=== PATIENT | female | born 1950 | race African-American/Black ===

== ENCOUNTER → 2017-10-21 | Outpatient (CLI) | payer OTHER, MEDICARE ==
[~2017-10-21] MED LIST: ASPIR 8181 MG PO; BENTYL10 MG PO; BENZTROPINE MESY2 MG PO; CALAN SR240 MG PO; CARBAMAZEPINE200 MG PO; DIATRIZOATE MEGL/DIATRIZOA SOD 30 ML BTL PO ONE; HYDROCHLOROTHIA25 MG PO; IOPAMIDOL 370 MG/ML 200 ML INFUS..BTL INJ ONE; SODIUM CHLORIDE 0.9% 50ML 50 ML ONE; ZOCOR20 MG PO
[2017-10-21 11:32] LABS: BASOPHILS # (AUTO) 0.1 (0.0-0.1); BASOPHILS % 0.7 % (0.0-1.0); EOSINOPHILS % 0.5 % (0.0-6.0); HEMATOCRIT 37.5 % (34.2-44.1); HEMOGLOBIN 11.7 g/dL (12.0-16.0); LYMPHOCYTES # (AUTO) 1.8 (1.0-3.2); LYMPHOCYTES % 24.1 % (18.0-39.1); MEAN CORPUSCULAR HEMOGLOBIN 26.4 pg (28-32); MEAN CORPUSCULAR HGB CONC 31.2 g/dL (31-35); MEAN CORPUSCULAR VOLUME 84.7 fL (81-99); MONOCYTES # (AUTO) 0.5 (0.2-0.8); MONOCYTES % 6.9 % (4.4-11.3); NEUTROPHILS # (AUTO) 4.9 (2.1-6.9); NEUTROPHILS % 67.7 % (38.7-80.0); PLATELET COUNT 385 x10e3/uL (140-360); RED BLOOD COUNT 4.43 x10e6/uL (3.6-5.1); RED CELL DISTRIBUTION WIDTH 16.8 % (11.7-14.4)
[2017-10-21 11:57] LABS: ALANINE AMINOTRANSFERASE 10 IU/L (0-55); ALBUMIN 3.1 g/dL (3.5-5.0); ALBUMIN/GLOBULIN RATIO 0.8 (0.8-2.0); ALKALINE PHOSPHATASE 60 IU/L (40-150); ANION GAP 12.7 mmol/L (8-16); BLOOD UREA NITROGEN 11 mg/dL (7-26); BUN/CREATININE RATIO 11 (6-25); CALCIUM 9.6 mg/dL (8.4-10.2); CARBON DIOXIDE 31 mmol/L (22-29); CHLORIDE 97 mmol/L (98-107); CREATININE, SERUM 0.98 mg/dL (0.57-1.11); EST GLOMERULAR FILTRATION RATE > 60 ML/MIN (60-); GLUCOSE 105 mg/dL (74-118); POTASSIUM 3.7 mmol/L (3.5-5.1); SODIUM 137 mmol/L (136-145)
--- NOTE | 2017-10-21 15:24 | Diagnostic Imaging Report ---
PROCEDURE: CT ABDOMEN AND PELVIS WITH CONTRAST TECHNIQUE: The abdomen and pelvis were scanned utilizing a multidetector helical scanner from the diaphragm to the lesser trochanter after the IV administration of 100 cc of Isovue 370 and the oral administration of dilute Gastrografin. Coronal and sagittal multiplanar reformations were obtained. COMPARISON: None. INDICATIONS: ABDOMINAL MASS, abdominal pain for 2 years FINDINGS: Exam limited by breathing motion artifact. LOWER THORAX: Visualized lung bases are clear. Moderate hiatal hernia, containing oral contrast HEPATOBILIARY: No focal hepatic lesions. No biliary ductal dilatation. Gallbladder is unremarkable. SPLEEN: No splenomegaly. PANCREAS: No focal masses or ductal dilatation. ADRENALS: No adrenal nodules. KIDNEYS/URETERS: Moderate bilateral pelvocaliectasis. No stones. No cystic or solid lesions. PELVIC ORGANS/BLADDER: Bladder is decompressed and grossly unremarkable. There is an approximately 25.0 x 21.3 x 16.9 cm complex, mostly cystic mass which occupies the pelvis and extends superiorly into the abdomen to the level of the SMA (series 2 image 56, sagittal image 64). This mass contains a crescentic shaped cyst heterogeneously solid nodular component with multiple rounded areas of enhancement and areas of dystrophic calcification in its left lower lateral aspect (series 2 image 58). Other heterogeneous, likely enhancing mural nodules are noted along the anterosuperior aspect (sagittal image 56 and series 2, image 40) as well as the right inferolateral aspect (series 2, images 67-71). A cystic 3.3 x 2.6 x 5.7 cm loculus on its right lateral aspect (series 2, image 48). It is difficult to determine whether this mass arises from or displaces the uterus, or from the right ovary. A normal right ovary is not identified. There is a left posterior pelvis soft tissue density with peripherally calcified structure, which may represent the left ovary (series 2, image 67). PERITONEUM / RETROPERITONEUM: No free air or fluid. LYMPH NODES: No lymphadenopathy. VESSELS: Celiac trunk, superior and inferior mesenteric, and bilateral renal arteries are patent. Portal, superior mesenteric, and splenic veins are patent. GI TRACT: No bowel dilation or evidence of obstruction. BONES AND SOFT TISSUES: No acute bony abnormalities. No aggressive lytic lesions. Degenerative changes in the lower thoracic and lumbosacral spine. Moderate to marked facet hypertrophy. L4-5. IMPRESSION: 1. Large complex, mostly cystic mass with crescentic and solid mural solid component occupying the pelvis and large portion of the abdomen, measuring approximately 25 cm in greatest diameter. It is difficult to determine whether this lesion arises from the uterus or right ovary. Normal right ovary is not identified. 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 No definite adenopathy, ascites, or peritoneal implants are identified in this exam. Recommend contrast-enhanced abdomen and pelvis MRI for further evaluation. Correlate with CA-125. 2. Moderate bilateral pelvocaliectasis, likely secondary to ureteral compression from the above-described mass. 3. Moderate hiatal hernia. Paddy Trejo M.D. Dictated by: Paddy Trejo M.D. on 10/21/2017 at 15:26 Electronically approved by: Paddy Trejo M.D. on 10/21/2017 at 15:26
== END ==
LOC: CT 10:25
PROVIDERS: ATTEND Surgery
DX: R19.09 Other intra-abdominal and pelvic swelling, mass and lump (principal)
CPT/HCPCS: 36415; 74177; 80053; 82378; 85025; 86304; Q9967

== ENCOUNTER 2017-11-16 05:25 | Inpatient (IN) | payer OTHER, MEDICARE ==
--- NOTE | 2017-11-11 10:00 | Diagnostic Imaging Report ---
PROCEDURE: X-RAY CHEST, TWO VIEWS COMPARISON: None. INDICATIONS: PREOPERATIVE CHEST XRAY FOR ABDOMEN SURGERY FINDINGS: Lungs are well-inflated. No focal airspace consolidation, pleural effusion, or pneumothorax. Calcified granuloma in the right upper lobe. Tortuosity and atherosclerotic calcification of the thoracic aorta. Normal heart size. Small hiatal hernia. No acute osseous abnormality. CONCLUSION: No acute cardiopulmonary abnormality. Dictated by: David Chandler M.D. on 11/11/2017 at 10:03 Electronically approved by: David Chandler M.D. on 11/11/2017 at 10:03
[2017-11-14 09:24] LABS: BASOPHILS # (AUTO) 0.1 (0.0-0.1); BASOPHILS % 0.8 % (0.0-1.0); EOSINOPHILS % 0.5 % (0.0-6.0); HEMATOCRIT 37.8 % (34.2-44.1); HEMOGLOBIN 11.9 g/dL (12.0-16.0); LYMPHOCYTES # (AUTO) 1.7 (1.0-3.2); LYMPHOCYTES % 23.6 % (18.0-39.1); MEAN CORPUSCULAR HEMOGLOBIN 26.6 pg (28-32); MEAN CORPUSCULAR HGB CONC 31.5 g/dL (31-35); MEAN CORPUSCULAR VOLUME 84.4 fL (81-99); MONOCYTES # (AUTO) 0.5 (0.2-0.8); MONOCYTES % 6.1 % (4.4-11.3); NEUTROPHILS % 68.7 % (38.7-80.0); PLATELET COUNT 368 x10e3/uL (140-360); RED BLOOD COUNT 4.48 x10e6/uL (3.6-5.1); RED CELL DISTRIBUTION WIDTH 16.2 % (11.7-14.4)
[2017-11-14 09:38] LABS: ANION GAP 13.1 mmol/L (8-16); BLOOD UREA NITROGEN 9 mg/dL (7-26); BUN/CREATININE RATIO 9 (6-25); CALCIUM 9.6 mg/dL (8.4-10.2); CARBON DIOXIDE 30 mmol/L (22-29); CHLORIDE 101 mmol/L (98-107); CREATININE, SERUM 1.01 mg/dL (0.57-1.11); EST GLOMERULAR FILTRATION RATE > 60 ML/MIN (60-); GLUCOSE 116 mg/dL (74-118); POTASSIUM 3.1 mmol/L (3.5-5.1); SODIUM 141 mmol/L (136-145)
[2017-11-16] VITALS (27 sets, daily range): BP systolic 112–153; BP diastolic 53–78
[~2017-11-16] VITALS: Ht 157.5 cm; Wt 76.9 kg
[~2017-11-16 05:25] MED LIST changes: -DIATRIZOATE MEGL/DIATRIZOA SOD 30 ML BTL PO ONE; +FERROUS SULFAT325 MG PO; +FOLIC ACID1 MG PO; -IOPAMIDOL 370 MG/ML 200 ML INFUS..BTL INJ ONE; +LOSARTAN-HCTZ1 EAC1 PO; +PRAVASTATIN SOD40 MG PO; -SODIUM CHLORIDE 0.9% 50ML 50 ML ONE; +TRIFLUOPERAZINE1 MG PO; +XARELTO10 MG PO
--- OUTSIDE RECORDS SUMMARY | 2017-11-16 05:27 | XMS REPORT | Clinical Summary ---
Author Author [facility] Organization [facility] Address Unknown Phone Unavailable Care Team Providers Care Cryptologic Technician Technical Name Role Phone Antwan Anders MD PCP Allergies No Known Allergies Current Medications Prescription Sig. Disp. Refills Start End Date Status Date aspirin (ECOTRIN) 81 MG Take 81 mg by mouth every Active enteric coated tablet morning. hydroCHLOROthiazide Take 12.5 mg by mouth Active (MICROZIDE) 12.5 mg every morning. capsule trifluoperazine Take 5 mg by mouth 2 Active (STELAZINE) 5 MG tablet (two) times a day. verapamil sustained Take 240 mg by mouth Active release (CALAN-SR) 240 MG nightly. SR tablet traMADol (ULTRAM) 50 mg Take 50 mg by mouth every Active tablet 8 (eight) hours as needed for moderate pain. pravastatin (PRAVACHOL) Take 40 mg by mouth Active 40 MG tablet nightly. losartan (COZAAR) 100 MG Take 100 mg by mouth Active tablet every morning. rivaroxaban (XARELTO) 15 Take 15 mg by mouth 2 Active mg tablet (two) times a day. potassium chloride Take 1 capsule (10 mEq 1 capsule 0 05/14/20 Active (MICRO-K) 10 MEQ CR total) by mouth daily. 17 capsule sennosides-docusate Take 1 tablet by mouth 2 60 tablet 1 05/14/20 sodium (SENOKOT-S) 8.6-50 (two) times a day as 17 18 mg per tablet needed for constipation for up to 30 days. Active Problems Problem Noted Date Hypokalemia 05/13/2017 Encounters Date Type Specialty Care Team Description 05/13/2017 Emergency General Internal Medicine Es Pereyra MD Hypokalemia (Primary Dx); - Jacoby Crowder Near syncope; 05/14/2017 DO Osito Rosenthal, Bereket Salinas MD after 11/15/2016 Social History Tobacco Use Types Packs/Day Years Used Date Never Smoker Smokeless Tobacco: Never Used Alcohol Use Drinks/Week oz/Week Comments No Sex Assigned at Date Recorded Not on file Last Filed Vital Signs Vital Sign Reading Time Taken Blood Pressure 144/65 05/14/2017 2:58 PM [employer] Pulse 109 05/14/2017 2:58 PM [employer] Temperature 37.3 C (99.1 F) 05/14/2017 2:58 PM [employer] Respiratory Rate 18 05/14/2017 2:58 PM [employer] Oxygen Saturation 98% 05/14/2017 2:58 PM [employer] Inhaled Oxygen - - Concentration Weight 83 kg (182 lb 14.4 oz) 05/13/2017 7:32 PM [employer] Height 157.5 cm (5' 2") 05/13/2017 7:32 PM [employer] Body Mass Index 33.45 05/13/2017 7:32 PM [employer] Plan of Treatment Health Maintenance Due Date Last Done Comments BREAST CANCER SCREENING 1999 COLON CANCER SCREENING 1999 SHINGRIX VACCINE (#1) 1999 ZOSTER VACCINE 2009 PNEUMOCOCCAL 2014 POLYSACCHARIDE VACCINE AGE 65 AND OVER PNEUMOCOCCAL-13 2014 INFLUENZA VACCINE 01/11/2018 Procedures Procedure Name Priority Date/Time Associated Diagnosis Comments IA CRITICAL CARE, ADDL 30 Routine 05/13/2017 Results for this MIN 2:33 AM [employer] procedure are in the results section. after 11/15/2016 Results * Estimated GFR (05/13/2017 1:27 PM) Only the most recent of 2 results within the time period is included. Component Value Ref Range GFR Non Af Amer 62 mL/min/1.73 m2 GFR Af Amer 75 mL/min/1.73 m2 Comment: Chronic kidney disease: <60 mL/min/1.73m2 Kidney failure: <15 mL/min/1.73m2 The estimated GFR is calculated from the IDMS-traceable Modification of Diet in Renal Disease Equation. The accuracy of the calculation is poor when the creatinine is normal. Calculated values >90 mL/min/1.73m2 are not reported. This equation has not been validated in children (<18 years), women, the elderly (>70 years), or ethnic groups other than Caucasians and Americans. Specimen Performing Laboratory Plasma specimen [facility]OMIC MEDICINE [address] [place] [address] * CBC with platelet and differential (05/13/2017 1:27 PM) Only the most recent of 2 results within the time period is included. Component Value Ref Range WBC 12.9 (H) 4.2 - 11.0 k/uL RBC 3.28 (L) 4.04 - 5.86 m/uL HGB 9.1 (L) 11.5 - 15.3 g/dL HCT 27.7 (L) 34.0 - 45.0 % MCV 84.5 80.0 - 98.0 fL MCH 27.7 27.0 - 34.0 pg MCHC 32.9 31.5 - 36.5 g/dL RDW - SD 43.5 37.0 - 51.0 fL MPV 10.3 7.4 - 10.4 fL Platelet count 416 (H) 150 - 400 k/uL Nucleated RBC 0.20 /100 WBC Neutrophils 83.5 (H) 36.0 - 66.0 % Lymphocytes 10.1 (L) 24.0 - 44.0 % Monocytes 5.7 0.0 - 6.0 % Eosinophils 0.0 0.0 - 6.0 % Basophils 0.2 0.0 - 1.2 % Immature granulocytes 0.5 0.0 - 1.0 % Specimen Performing Laboratory Blood [facility] GENOMIC MEDICINE [address] [place] [address] * Basic metabolic panel (05/13/2017 1:27 PM) Component Value Ref Range Sodium 135 135 - 150 mEq/L Potassium 3.2 (L) 3.5 - 5.0 mEq/L Chloride 98 (L) 100 - 109 mEq/L CO2 29 24 - 32 mmol/L Anion gap 8 7 - 15 mEq/L Comment: Starting from September , anion gap calculation no longer incorporates potassium. Please note the change. BUN 24 (H) 7 - 18 mg/dL Creatinine 0.9 0.8 - 1.5 mg/dL Glucose 179 (H) 65 - 100 mg/dL Calcium 7.8 (L) 8.6 - 10.7 mg/dL Specimen Performing Laboratory Plasma specimen [facility] GENOMIC MEDICINE [address] [place] [address] * Urinalysis screen and microscopy, with reflex to culture (05/13/2017 4:24 AM) Component Value Ref Range Specimen site Clean catch Color, UA Yellow Appearance, UA Clear Specific gravity, UA 1.056 (H) 1.001 - 1.035 pH, UA 5.0 5.0 - 8.5 Protein, UA Negative Negative Glucose, UA Negative Negative Ketones, UA Trace (A) Negative Bilirubin, UA Negative Negative Blood, UA Trace (A) Negative Nitrite, UA Negative Negative Urobilinogen, UA Negative <2.0 Leukocyte esterase, UA Large (A) Negative Epithelial cells, UA Many /HPF WBC, UA 50 (H) 0 - 5 /HPF RBC, UA 13 (H) 0 - 5 /HPF Bacteria, UA Trace None seen Yeast, UA None seen Yeast with pseudohyphae, None seen UA Specimen Performing Laboratory Urine [facility]OM[facility]IC[facility] [address] [place] [address] * Gram stain (05/13/2017 4:24 AM) Component Value Ref Range Gram stain result Rare WBC's Occasional Gram positive cocci in pairs Comment: Specimen Information Specimen Source: Urine Specimen Site: Clean catch Specimen Performing Laboratory Urine [facility] DEPARTMENT OF PATHOLOGY AND GENOMIC MEDICINE [address] [place] [address] * Urine culture (05/13/2017 4:24 AM) Component Value Ref Range Urine culture isolate Gram negative rods 10-2 cfu/ml (A) Comment: Specimen Information Specimen Source: Urine Specimen Site: Clean catch Urine culture isolate Mixed Gram positive francis 10-1 cfu/ml (A) Urine culture isolate Streptococcus anginosus group 10-5 cfu/ml (A) Specimen Performing Laboratory Urine [facility] DEPARTMENT OF PATHOLOGY AND GENOMIC MEDICINE [address] [place] [address] * CT Angiogram Pe Chest (05/13/2017 2:58 AM) Specimen [place] [address] ANGIOGRAM PE CHEST INDICATION:sob TECHNIQUE: Multidetector CT of the chest with attention to the pulmonary arteries was performed following the intravenous administration of iodinated contrast. Standard multiplanar reformatted images were performed.In addition , postprocessed 3D MIP images were also performed for CT angiography. CT imaging was performed with iterative reconstruction technique and/or automated exposure control to reduce radiation dose. COMPARISON:None FINDINGS: PULMONARY ARTERIES:The pulmonary arteries are diagnostically opacified without findings for acute pulmonary embolus. HEART AND GREAT ARTERIES:The heart is normal in size without pericardial effusion. The aorta and great vessels are unremarkable for phase of scanning. MEDIASTINUM AND KYUNG: No mass or hematoma is identified.No enlarged lymph nodes are seen.Trachea and central airways are patent. LUNGS:Clear. PLEURA: No pneumothorax or effusion. CHEST WALL:There are no acute osseous abnormalities. There is mild skin thickening of the right breast. VISUALIZED ABDOMEN: There is upper abdominal ascites. There is a moderate-sized hiatal hernia. IMPRESSION: 1. No pulmonary embolism or acute pulmonary infiltrate. 2. Moderate-sized hiatal hernia. 3. Mild skin thickening of the right breast, clinical correlation is recommended. 4. Upper abdominal ascites. [facility]-[id number] Procedure Note [facility], Radiology Results Incoming - 05/13/2017 3:08 AM [employer] CT ANGIOGRAM PE CHEST INDICATION: sob TECHNIQUE: Multidetector CT of the chest with attention to the pulmonary arteries was performed following the intravenous administration of iodinated contrast. Standard multiplanar reformatted images were performed. In addition, postprocessed 3D MIP images were also performed for CT angiography. CT imaging was performed with iterative reconstruction technique and/or automated exposure control to reduce radiation dose. COMPARISON: None FINDINGS: PULMONARY ARTERIES: The pulmonary arteries are diagnostically opacified without findings for acute pulmonary embolus. HEART AND GREAT ARTERIES: The heart is normal in size without pericardial effusion. The aorta and great vessels are unremarkable for phase of scanning. MEDIASTINUM AND KYUNG: No mass or hematoma is identified. No enlarged lymph nodes are seen. Trachea and central airways are patent. LUNGS: Clear. PLEURA: No pneumothorax or effusion. CHEST WALL: There are no acute osseous abnormalities. There is mild skin thickening of the right breast. VISUALIZED ABDOMEN: There is upper abdominal ascites. There is a moderate-sized hiatal hernia. IMPRESSION: 1. No pulmonary embolism or acute pulmonary infiltrate. 2. Moderate-sized hiatal hernia. 3. Mild skin thickening of the right breast, clinical correlation is recommended. 4. Upper abdominal ascites. [facility]-[id number] * CRITICAL CARE (05/13/2017 2:33 AM) Narrative Es Pereyra MD 05/13/20172:33 AM Critical Care Performed by: ES PEREYRA Authorized by: ES PEREYRA Critical care provider statement: Critical care time (minutes):32 Critical care was necessary to treat or prevent imminent or life-threatening deterioration of the following conditions:Cardiac failure, circulatory failure and MAKE [employer] OPERATOR failure or compromise Critical care was time spent personally by me on the following activities:Blood draw for specimens, development of treatment plan with patient or surrogate and discussions with consultants Jesus 'yes' if you are taking over critical care for this patient from another provider.: yes * Troponin (05/13/2017 1:02 AM) Component Value Ref Range Troponin <0.01 0.00 - 0.60 ng/mL Comment: 0.11 - 1.49 ng/ml May indicate increased risk of acute coronary syndrome. >=1.5 ng/ml Consistent with acute myocardial infarction. The diagnostic value of a single normal or non-diagnostic result is questionable. Serial samples at 2-6 hour intervals are required to rule out acute myocardial injury. Specimen Performing Laboratory Plasma specimen [facility] OF [facility]OLOG[facility] AND GENOMIC MEDICINE [address] [place] [address] * Prothrombin time with INR (05/13/2017 1:02 AM) Component Value Ref Range Prothrombin time 29.8 (H) 12.0 - 15.0 sec INR 2.76 (H) 0.92 - 1.12 Comment: For patients on anticoagulant therapy, reference ranges below: Indication: INR Value Treatment of Venous Thrombosis, 2.0-3.0 pulmonary emboli, or prophylaxis of a venous thrombosis, or systemic emboli. High dose, high risk patients 3.0-4.5 with mechanical valves. NOTE: INR values over 3.0 are sometimes associated with gastrointestinal hemorrhage, especially values over 4.0. Specimen Performing Laboratory Blood [facility]OLOGY AND GENOMIC MEDICINE [address] [place] [address] * B natriuretic peptide (05/13/2017 1:02 AM) Component Value Ref Range BNP 13 0 - 100 pg/mL Specimen Performing Laboratory Blood [facility]OLOGY AND GENOMIC MEDICINE [address] [place] [address] * Comprehensive metabolic panel (05/13/2017 1:02 AM) Component Value Ref Range Sodium 133 (L) 135 - 150 mEq/L Potassium 2.6 (LL) 3.5 - 5.0 mEq/L Comment: Results called to and read back by alberto Au RN/ER at 05/13/2017 02:24 by RICK Chloride 93 (L) 100 - 109 mEq/L CO2 28 24 - 32 mmol/L Anion gap 12 7 - 15 mEq/L Comment: Starting from September , anion gap calculation no longer incorporates potassium. Please note the change. BUN 27 (H) 7 - 18 mg/dL Creatinine 1.0 0.8 - 1.5 mg/dL Glucose 165 (H) 65 - 100 mg/dL Calcium 8.4 (L) 8.6 - 10.7 mg/dL Protein 6.9 6.3 - 8.2 g/dL Albumin 2.9 (L) 3.2 - 5.0 g/dL A/G ratio 0.7 0.7 - 3.8 Alkaline phosphatase 57 30 - 120 U/L AST 25 15 - 37 U/L ALT 14 (L) 30 - 65 U/L Total bilirubin 0.4 0.2 - 1.2 mg/dL Specimen Performing Laboratory Plasma specimen [facility]OLOG[facility] AND GENOMIC MEDIC[facility] [address] [facility] [place] [address] * XR Chest 1 Vw Portable (05/13/2017 12:50 AM) Specimen Performing Laboratory [facility] [address] [place] [address] Narrative EXAMINATION:XR CHEST 1 VW PORTABLE CLINICAL HISTORY: Chest Pain COMPARISON:None IMPRESSION: Low lung volumes results in bronchovascular crowding and bibasilar atelectasis. Taking this into consideration, cardiomediastinal silhouette is within normal limits of size. No superimposed focal or confluent airspace consolidation is seen on the single AP view to suggest acute pneumonia. No sizable pleural effusion. No pneumothorax identified. No acute osseous abnormalities are visualized. [facility]-[id number] Procedure Note Interface, Radiology Results Incoming - 05/13/2017 1:03 AM [employer] EXAMINATION: XR CHEST 1 VW PORTABLE CLINICAL HISTORY: Chest Pain COMPARISON: None IMPRESSION: Low lung volumes results in bronchovascular crowding and bibasilar atelectasis. Taking this into consideration, cardiomediastinal silhouette is within normal limits of size. No superimposed focal or confluent airspace consolidation is seen on the single AP view to suggest acute pneumonia. No sizable pleural effusion. No pneumothorax identified. No acute osseous abnormalities are visualized. 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 Previous ECG: Previous ECG:Compared to current Interpretation: Interpretation: normal Rate: ECG rate:104 ECG rate assessment: normal Rhythm: Rhythm: sinus rhythm Ectopy: Ectopy: none QRS: QRS axis:Normal Conduction: Conduction: normal ST segments: ST segments:Normal T waves: T waves: normal * ECG 12 lead (05/13/2017 12:35 AM) Component Value Ref Range Ventricular rate 104 Atrial rate 104 IA interval 124 QRSD interval 64 QT interval 358 QTC interval 470 P axis 1 45 QRS axis 1 66 T wave axis 2 EKG impression Sinus tachycardia-Cannot rule out Anterior infarct , age undetermined-Abnormal ECG-No previous ECGs available- Specimen Performing Laboratory [facility] [address] [place] [address] after 11/15/2016 Insurance Payer Benefit Subscriber ID Type Phone Address Plan / Group [employer] TEX[employer] xxxxxxxxx O [facility] [place] [address]
--- OUTSIDE RECORDS SUMMARY | 2017-11-16 05:27 | XMS REPORT ---
Author Author [facility] Address Unknown Phone Unavailable Care Team Providers Care Manager Code Name Role Phone ERORL CARVAJAL Unavailable Unavailable Problems This patient has no known problems. Allergies, Adverse Reactions, Alerts This patient has no known allergies or adverse reactions. Medications This patient has no known medications. Results Test Description Test Time Test Comments Text Results Atomic Results Result Comments CHEST 2 VIEWS [place] [address] Patient Name: TASHA NOLEN MR #: [id number] : 1950 Age/Sex: 67/F Req # : [id number] Adm Physician: Ordered by: ERROL CARVAJAL MD Report #: [id number] Location: OR Room/Bed: Procedure: 36 DX/CHEST 2 VIEWS Exam Date: Exam Time: REPORT STATUS: Signed PROCEDURE: X-RAY CHEST, TWO VIEWS COMPARISON: None. INDICATIONS: PREOPERATIVE CHEST XRAY FOR ABDOMEN SURGERY FINDINGS: Lungs are well-inflated. No focal airspace consolidation, pleural effusion, or pneumothorax. Calcified granuloma in the right upper lobe. Tortuosity and atherosclerotic calcification of the thoracic aorta. Normal heart size. Small hiatal hernia. No acute osseous abnormality. CONCLUSION: No acute cardiopulmonary abnormality. Dictated by: Christine Vazquez M.D. on 11/11/2017 at 10:03 Electronically approved by: Christine Vazquez M.D. on 11/11/2017 at 10:03 Dictated By: CHRISTINE VAZQUEZ MD [id number] Transcribed By: MILENA on 11/11/17 1003 COPY TO: ERROL CARVAJAL MD CT ABDOMEN/PELVIS W [facility] [address] [place] [address] Patient Name: TASHA NOLEN MR #: [id number] : 1950 Age/Sex: 67/F Req #: [id number] Adm Physician: Ordered by: ERRLO CARVAJAL MD Report #: [id number] Location: CT Room/Bed: Procedure: [id number] CT/CT ABDOMEN/PELVIS W Exam Date: 10/21/17 Exam Time: 1227 REPORT STATUS: Signed PROCEDURE: CT ABDOMEN AND PELVIS WITH CONTRAST TECHNIQUE: The abdomen and pelvis were scanned utilizing a multidetector helical scanner from the diaphragm to the lesser trochanter after the IV administration of 100 cc of Isovue 370 and the oral administration of dilute Gastrografin. Coronal and sagittal multiplanar reformations were obtained. COMPARISON: None. INDICATIONS: ABDOMINAL MASS, abdominal pain for 2 years FINDINGS: Exam limited by breathing motion artifact. LOWER THORAX: Visualized lung bases are clear. Moderate hiatal hernia, containing oral contrast HEPATOBILIARY: No focal hepatic lesions. No biliary ductal dilatation. Gallbladder is unremarkable. SPLEEN: No splenomegaly. PANCREAS: No focal masses or ductal dilatation. ADRENALS: No adrenal nodules. KIDNEYS/URETERS: Moderate bilateral pelvocaliectasis. No stones. No cystic or solid lesions. PELVIC ORGANS/BLADDER: Bladder is decompressed and grossly unremarkable. There is an approximately 25.0 x 21.3 x 16.9 cm complex, mostly cystic mass which occupies the pelvis and extends superiorly into the abdomen to the level of the SMA (series 2 image 56, sagittal image 64). This mass contains a crescentic shaped cyst heterogeneously solid nodular component with multiple rounded areas of enhancement and areas of dystrophic calcification in its left lower lateral aspect (series 2 image 58). Other heterogeneous, likely enhancing mural nodules are noted along the anterosuperior aspect ( sagittal image 56 and series 2, image 40) as well as the right inferolateral aspect (series 2, images 67-71). A cystic 3.3 x 2.6 x 5.7 cm loculus on its right lateral aspect (series 2, image 48). It is difficult to determine whether this mass arises from or displaces the uterus, or from the right ovary. A normal right ovary is not identified. There is a left posterior pelvis soft tissue density with peripherally calcified structure, which may represent the left ovary (series 2, image 67). PERITONEUM / RETROPERITONEUM : No free air or fluid. LYMPH NODES: No lymphadenopathy. VESSELS: Celiac trunk, superior and inferior mesenteric, and bilateral renal arteries are patent. Portal, superior mesenteric, and splenic veins are patent. GI TRACT : No bowel dilation or evidence of obstruction. BONES AND SOFT TISSUES: No acute bony abnormalities. No aggressive lytic lesions. Degenerative changes in the lower thoracic and lumbosacral spine. Moderate to marked facet hypertrophy. L4-5. IMPRESSION: 1. Large complex, mostly cystic mass with crescentic and solid mural solid component occupying the pelvis and large portion of the abdomen, measuring approximately 25 cm in greatest diameter. It is difficult to determine whether this lesion arises from the uterus or right ovary. Normal right ovary is not identified. 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 No definite adenopathy, ascites, or peritoneal implants are identified in this exam. Recommend contrast-enhanced abdomen and pelvis MRI for further evaluation. Correlate with CA-125. 2. Moderate bilateral pelvocaliectasis, likely secondary to ureteral compression from the above- described mass. 3. Moderate hiatal hernia. Yoshi Trejo M.D. Dictated by: Yoshi Trejo M.D. on 10/21/2017 at 15:26 Electronically approved by: Yoshi Trejo M.D. on 10/21/2017 at 15:26 Dictated By: YOSHI TREJO MD 152 Transcribed By: MILENA on 10/21/17 152 COPY TO: ERROL CARVAJAL MD
--- OUTSIDE RECORDS SUMMARY | 2017-11-16 05:28 | XMS REPORT | Summary of Care ---
Author Author LOREN PONCE M.D. Organization Unknown Address Unknown Phone Unavailable Care Team Providers Care [employer] Name Role Phone LOREN PONCE M.D. Unavailable Unavailable Unavailable Unavailable Functional Status Name Dates Details Functional status health issues are not documented Status: Name Dates Details Cognitive status health issues are not documented Status: Problems Name Dates Details Hyperlipidemia (272.4, E78.5) Status: Active Hypertension (401.9, I10) Status: Active Anemia (285.9, D64.9) Status: Active Renal insufficiency (593.9, N28.9) Status: Active Prediabetes (790.29, R73.03) Status: Active Schizophrenia (295.90, F20.9) Status: Active DVT (deep venous thrombosis) (453.40, I82.409) Status: Active Adnexal mass (625.8, N94.9) Status: Active Medications Name Dates Details Trifluoperazine HCl - 5 MG Oral Tablet Active Xarelto 15 MG Oral Tablet * Refills: 0 Active Losartan Potassium-HCTZ 100-25 MG Oral Tablet * Refills: 0 Active Aspirin 81 MG TABS * Refills: 0 Active Pravastatin Sodium 40 MG Oral Tablet * Refills: 0 Active Verapamil HCl ER 240 MG Oral Capsule Extended Release 24 Hour * Refills: 0 Active Multi-Vitamin Oral Tablet * Refills: 0 Active Folic Acid 1 MG Oral Tablet * Refills: 0 Active Ferrous Sulfate 325 (65 Fe) MG Oral Tablet * Refills: 0 Active Allergies and Adverse Reactions Name Dates Details No Known Drug Allergies (Allergy) Status: Active Procedures Procedure Dates Details CT Abdomen/Pelvis w contrast [id number] Date: 04-Oct-2017 Immunization Name Dates Details Immunizations not documented Family History Name Dates Details Family history of hypertension (V17.49, Z82.49) Status: Active Social History Name Dates Details - Status: Name Dates Details Never smoker Vital Signs Date Test Result Details [id number] BP Systolic 159 mm[Hg] Status: BP Diastolic 83 mm[Hg] Status: Height 62 in Status: Weight 171 lb Status: Body Mass Index Calculated 31.28 kg/m2 Status: Body Surface Area Calculated 1.79 m2 Status: Temperature 98 f Status: Heart Rate 111 /min Status: O2 SAT 94 % Status: Results Date Description Value Details Results not documented Plan of Care Name Dates Details Planned Observations Planned Goals not documented Interventions Provided Labs/Procedures/Imaging* CT Abdomen/Pelvis w contrast [id number]; To Be Done: 04 Oct 2017 Instructions* Patient Specific Education Given; Done: 04 Oct 2017 Discussion/Summary* 67 year old black female, , with history of schizophrenia?, HTN, elevated cholesterol, ? renal insufficiency, presented with at least a 2 year history of a 12 cm adnexal mass that has never been addressed or followed. * She presents with a huge 40 cm plus abdominal mass most likely arising from the pelvis. 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 It will need to be surgically removed. May be related to her DVT 05/29. * Her Xarelto and DVT will need to be addressed prior to surgery. * Plan: CT scan of the abdomen and pelvis. * CA 125 and CEA with blood work. * Next visit in 1-2 weeks to discuss. Instructions Name Dates Details Instructions not documented Encounters Appointment; LOREN PONCE M.D. Encounter Diagnosis: Problem not documented On: 04-Oct-2017 10:00
--- OUTSIDE RECORDS SUMMARY | 2017-11-16 05:28 | XMS REPORT ---
Author Organization Unknown Address [address] [place] [id number] Phone [phone] Care Team Providers Care Workflow Developer Name Role Phone Chago, Veronica Unavailable Unavailable Allergies Code Code System Name Reaction Severity Status Onset No Known Allergies Active NKDA Medications Name Status Start Date Stop Date Aspirin Low Dose 81 mg tablet,delayed release Take 1 tablet every day by oral route for 90 days. Active Not available calcitriol 0.25 mcg capsule Completed 05/24/2017 Dulcolax Stool Softener (docusate) 100 mg capsule Take 1 capsule every day by oral route for 90 days. Completed 05/24/2017 ferrous sulfate 325 mg (65 mg iron) tablet Take 1 tablet every day by oral route for 90 days. Active Not available folic acid 1 mg tablet Take 1 tablet every day by oral route for 90 days. Active Not available hydrochlorothiazide 12.5 mg tablet Completed 08/16/2017 hydrochlorothiazide 25 mg tablet Completed 07/14/2016 losartan 100 mg tablet Completed 08/16/2017 losartan 100 mg-hydrochlorothiazide 25 mg tablet Active Not available Myrbetriq 25 mg tablet,extended release Completed 11/23/2016 potassium chloride ER 10 mEq tablet,extended release Completed 08/16/2017 potassium chloride ER 10 mEq tablet,extended release(part/cryst) Take 1 tablet twice a day by oral route for 15 days. Completed 08/16/2017 pravastatin 40 mg tablet Active Not available tramadol 50 mg tablet Completed 08/16/2017 trifluoperazine 5 mg tablet Active Not available verapamil ER (SR) 240 mg tablet,extended release Completed 04/13/2016 verapamil ER 240 mg 24 hr capsule,extended release Active Not available Xarelto 15 mg (42)-20 mg (9) tablets in a dose pack Take all tablets as directed on the pack Completed 08/16/2017 Xarelto 15 mg tablet Active Not available Xarelto 20 mg tablet Take 1 tablet every day by oral route with meals. 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 History Prediabetes Active 04/13/2016 Hypertensive Heart and Renal Disease Active 07/16/2016 Chronic Kidney Disease Stage 3 Active 07/16/2016 Hyperparathyroidism Due to Renal Insufficiency Active 11/23/2016 Mass of Ovary Active 05/24/2017 Procedures Date Name Performed by 06/24/2015 Mammogram, Screening Information not available 09/24/2014 Bone Density Study Information not available 05/11/2017 US, Doppler, Venous [facility] [address] [address] [facility] [address] [place] [address] ( (Work Place) Notes: 10/21/2015: Colonoscopy; Surgery Date: 2012 Lab Results Date Name Specimen Result Interpretation Description Value Range Status Address 08/16/2017 Magnesium, Serum or Plasma Normal Magnesium 1.9 mg/dL 1.5-2.5 mg/dL Final [facility]: [address] [facility] [place] 08/16/2017 CBC W/ Auto Diff Normal White Blood Cell Count 9.4 thousand/uL 3.8-10.8 thousand/uL Final [facility]: [address] Low Red Blood Cell Count 3.67 million/uL 3.80-5.10 million/uL Final [facility]: [address] Lopez [address] Low Hemoglobin 9.7 g/dL 11.7-15.5 g/dL Final [facility]: [address] Low Hematocrit 31.4 % 35.0-45.0 % Final [facility]: [address] Lopez [facility] Mcv 85.6 fL 80.0-100.0 fL Final [facility]: [address] Low Mch 26.4 pg 27.0-33.0 pg Final [facility]: [address] Low Mchc 30.9 g/dL 32.0-36.0 g/dL Final [facility]: [address] [place] Normal Rdw 14.5 % 11.0-15.0 % Final [facility]: [address] [place] High Platelet Count 531 thousand/uL 140-400 thousand/uL Final [facility]: [address] [place] Normal Mpv 10.5 fL 7.5-12.5 fL Final [facility]: [address] [place] Normal Absolute Neutrophils 7379 cells/uL 4554-8065 cells/uL Final [facility]: [address] [place] Normal Absolute Lymphocytes 1391 cells/uL 850-3900 cells/uL Final [facility]: [address] [place] Normal Absolute Monocytes 583 cells/uL 200-950 cells/uL Final [facility]: [address] [place] Low Absolute Eosinophils 9 cells/uL 15-500 cells/uL Final [facility]: [address] [place] Normal Absolute Basophils 38 cells/uL 0-200 cells/uL Final [facility]: [address] [place] Normal Neutrophils 78.5 % Final [facility]: [address] [place] Normal Lymphocytes 14.8 % Final [facility]: [address] [place] Normal Monocytes 6.2 % Final [facility]: [address] [place] Normal Eosinophils 0.1 % Final [facility]: [address] [facility] Basophils 0.4 % Final [facility]: [address] [facility] 08/16/2017 Phosphorus, Serum or Plasma High Phosphate (as Phosphorus ) 4.5 mg/dL 2.1-4.3 mg/dL Final [facility]: [address] [facility] 08/16/2017 Lipid Panel, Serum Normal Cholesterol, Total 147 mg/dL <200 mg/dL Final [facility]: [address] [facility] Low HDL Cholesterol 43 mg/dL >50 mg/dL Final [facility]: [address] [facility] Normal Triglycerides 124 mg/dL <150 mg/dL Final [facility]: [address] Normal LDL-cholesterol 81 mg/dL (calc) Final [facility]: [address] Normal Chol/hdlc Ratio 3.4 (calc) <5.0 (calc) Final [facility]: [address] Normal Non HDL Cholesterol 104 mg/dL (calc) <130 mg/dL (calc) Final [facility]: [address] 08/16/2017 CMP, Serum or Plasma High Glucose 104 mg/dL 65-99 mg/ dL Final [facility]: [address] Normal Urea Nitrogen (BUN) 14 mg/dL 7-25 mg/dL Final [facility]: [address] High Creatinine 1.01 mg/dL 0.50-0.99 mg/dL Final [facility]: [address] Low eGFR Non-afr. Bhutanese 57 mL/min/1.73m2 > or=60 mL/min/ 1.73m2 Final [facility]: [address] Normal eGFR 66 mL/min/1.73m2 > or=60 mL/min/ 1.73m2 Final [facility]: [address] Normal BUN/creatinine Ratio 14 (calc) 6-22 (calc) Final [facility]: [address] Normal Sodium 139 mmol/L 135-146 mmol/L Final [facility]: [address] Normal Potassium 4.2 mmol/L 3.5-5.3 mmol/L Final [facility]: [address] Normal Chloride 98 mmol/L 98-110 mmol/L Final [facility]: [address] High Carbon Dioxide 32 mmol/L 20-31 mmol/L Final [facility]: [address] High Calcium 10.9 mg/dL 8.6-10.4 mg/dL Final [facility]: [address] Normal Protein, Total 6.6 g/dL 6.1-8.1 g/dL Final [facility]: [address] Normal Albumin 3.7 g/dL 3.6-5.1 g/dL Final [facility]: [address] Normal Globulin 2.9 g/dL (calc) 1.9-3.7 g/dL (calc) Final [facility]: [address] Normal Albumin/globulin Ratio 1.3 (calc) 1.0-2.5 (calc) Final [facility]: [facility] Madeleine Fwchristine [address] Normal Bilirubin, Total 0.3 mg/dL 0.2-1.2 mg/dL Final [facility]: [address] Normal Alkaline Phosphatase 48 U/L 33-130 U/L Final [facility]: [facility] [address] Normal Ast 12 U/L 10-35 U/L Final [facility]: [facility] Madeleine [address] Normal Alt 7 U/L 6-29 U/L Final [facility]: [facility] Madeleine christine [address] 08/16/2017 Protein:creatinine Ratio, Urine Normal Creatinine, Random Urine 136 mg/dL 20-320 mg/dL Final [facility]: [facility] Madeleine christine [address] Normal Protein/creatinine Ratio 110 mg/g creat 21-161 mg/g creat Final [facility]: [facility] [address] Normal Protein, Total, Random Ur 15 mg/dL 5-24 mg/dL Final [facility]: [facility] Madeleine christine [address] 08/16/2017 PTH (Parathyroid Hormone), Intact, Serum or Plasma Normal Parathyroid Hormone, Intact 17 pg/mL 14-64 pg/mL Final [facility]: [address] 11/23/2016 CBC W/ Auto Diff Normal White Blood Cell Count 6.6 thousand/uL 3.8-10.8 thousand/uL Final [facility]: [facility] Madeleine [address] Normal Red Blood Cell Count 4.39 million/uL 3.80-5.10 million/ uL Final [facility]: [address] Carrera Normal Hemoglobin 12.1 g/dL 11.7-15.5 g/dL Final [facility]: [address] [place] Normal Hematocrit 38.3 % 35.0-45.0 % Final [facility]: [address] [place] Normal Mcv 87.3 fL 80.0-100.0 fL Final [facility]: [address] [place] Normal Mch 27.6 pg 27.0-33.0 pg Final [facility]: [address] [place] Low Mchc 31.6 g/dL 32.0-36.0 g/dL Final [facility]: [address]er [place] Normal Rdw 15.0 % 11.0-15.0 % Final [facility]: [address] [place] Normal Platelet Count 314 thousand/uL 140-400 thousand/uL Final [facility]: [address] [place] Normal Mpv 9.5 fL 7.5-12.5 fL Final [facility]: [address] Carrera Normal Absolute Neutrophils 3947 cells/uL 4482-3232 cells/uL Final [facility]: [address] [place] Normal Absolute Lymphocytes 1775 cells/uL 850-3900 cells/uL Final [facility]: [address]er [place] Normal Absolute Monocytes 475 cells/uL 200-950 cells/uL Final [facility]: [address] [place] Normal Absolute Eosinophils 370 cells/uL 15-500 cells/uL Final [facility]: [address] [place] Normal Absolute Basophils 33 cells/uL 0-200 cells/uL Final [facility]: [address] [place] Normal Neutrophils 59.8 % Final [facility]: [address] [place] Normal Lymphocytes 26.9 % Final [facility]: [address] [place] Normal Monocytes 7.2 % Final [facility]: [address] [place] Normal Eosinophils 5.6 % Final [facility]: [address] [place] Normal Basophils 0.5 % Final [facility]: [address] [place] 11/23/2016 CMP, Serum or Plasma Normal Glucose 84 mg/dL 65-99 mg/ dL Final [facility]: [address] Lopez [facility] Normal Urea Nitrogen (BUN) 10 mg/dL 7-25 mg/dL Final [facility]: [address] [place] [address] Normal Creatinine 0.86 mg/dL 0.50-0.99 mg/dL Final [facility]: [address] Golds[address] [place] [address] Normal eGFR Non-afr. [place]utanese 70 mL/min/1.73m2 > or=60 mL/min/ 1.73m2 Final [facility]: [address] [facility] Normal eGFR 81 mL/min/1.73m2 > or=60 mL/min/ 1.73m2 Final [facility]: [address] [place] [address] BUN/creatinine Ratio not applicable (calc) 6-22 (calc) Final [facility]: [address] Normal Sodium 139 mmol/L 135-146 mmol/L Final [facility]: [address] Normal Potassium 4.1 mmol/L 3.5-5.3 mmol/L Final [facility]: [address] Normal Chloride 104 mmol/L 98-110 mmol/L Final [facility]: [address] Golds[address] [place] [address] Normal Carbon Dioxide 26 mmol/L 20-31 mmol/L Final [facility]: [address] Golds[address] [place] [address] Normal Calcium 9.4 mg/dL 8.6-10.4 mg/dL Final [facility]: [address] Normal Protein, Total 6.8 g/dL 6.1-8.1 g/dL Final [facility]: [address] [facility] Normal Albumin 3.9 g/dL 3.6-5.1 g/dL Final [facility]: [address] Normal Globulin 2.9 g/dL (calc) 1.9-3.7 g/dL (calc) Final [facility]: [address] Normal Albumin/globulin Ratio 1.3 (calc) 1.0-2.5 (calc) Final [facility]: [address] Normal Bilirubin, Total 0.3 mg/dL 0.2-1.2 mg/dL Final [facility]: [address] Normal Alkaline Phosphatase 72 U/L 33-130 U/L Final [facility]: [address] Normal Ast 12 U/L 10-35 U/L Final [facility]: [address] Normal Alt 10 U/L 6-29 U/L Final [facility]: [address] 11/23/2016 Lipid Panel, Serum Normal Cholesterol, Total 155 mg/dL 125-200 mg/dL Final [facility]: [address] Low HDL Cholesterol 37 mg/dL > or=46 mg/dL Final [facility]: [address] Normal Triglycerides 149 mg/dL <150 mg/dL Final [facility]: [address] Normal LDL-cholesterol 88 mg/dL (calc) <130 mg/dL (calc) Final [facility]: [address] Normal Chol/hdlc Ratio 4.2 (calc) < or=5.0 (calc) Final [facility]: [address] Normal Non HDL Cholesterol 118 mg/dL (calc) Final [facility]: [address] 11/23/2016 PTH (Parathyroid Hormone), Intact, Serum or Plasma High Parathyroid Hormone, Intact 93 pg/mL 14-64 pg/mL Final [facility]: [address] 09/03/2016 Lipid Panel, Serum Normal Cholesterol, Total 159 mg/dL 125-200 mg/dL Final [facility]: [address], [place] Normal HDL Cholesterol 52 mg/dL > or=46 mg/dL Final [facility]: [address], [place] Normal Triglycerides 97 mg/dL <150 mg/dL Final [facility]: [address], [place] Normal LDL-cholesterol 88 mg/dL (calc) <130 mg/dL (calc) Final [facility]: [address] [facility], [place] Normal Chol/hdlc Ratio 3.1 (calc) < or=5.0 (calc) Final [facility]: [address], [place] Normal Non HDL Cholesterol 107 mg/dL (calc) Final [facility]: [address] [facility], [place] 09/03/2016 CMP, Serum or Plasma Normal Glucose 85 mg/dL 65-99 mg/ dL Final [facility]: [address] [facility], [place] Normal Urea Nitrogen (BUN) 10 mg/dL 7-25 mg/dL Final [facility]: [address] [facility], [place] High Creatinine 1.04 mg/dL 0.50-0.99 mg/dL Final [facility]: [address] [facility], [place] Low eGFR Non-afr. Bhutanese 56 mL/min/1.73m2 > or=60 mL/min/ 1.73m2 Final [facility]: [address] [facility], [place] Normal eGFR 64 mL/min/1.73m2 > or=60 mL/min/ 1.73m2 Final [facility] [address] [facility] [place] Normal BUN/creatinine Ratio 10 (calc) 6-22 (calc) Final [facility]: [address] [facility], [place] Normal Sodium 143 mmol/L 135-146 mmol/L Final [facility]: [address] [facility], [place] Normal Potassium 3.8 mmol/L 3.5-5.3 mmol/L Final [facility]: [address] [facility], [place] Normal Chloride 108 mmol/L 98-110 mmol/L Final [facility]: [address] [facility], [place] Normal Carbon Dioxide 22 mmol/L 20-31 mmol/L Final [facility]: [address] [facility], [place] Normal Calcium 9.4 mg/dL 8.6-10.4 mg/dL Final [facility]: [address] [facility], [place] Normal Protein, Total 6.9 g/dL 6.1-8.1 g/dL Final [facility]: [address], [place] Normal Albumin 4.0 g/dL 3.6-5.1 g/dL Final [facility]: [address] [facility] [place] Normal Globulin 2.9 g/dL (calc) 1.9-3.7 g/dL (calc) Final [facility]: [address] [facility] [place] Normal Albumin/globulin Ratio 1.4 (calc) 1.0-2.5 (calc) Final [facility]: [address] [facility] [place] Normal Bilirubin, Total 0.4 mg/dL 0.2-1.2 mg/dL Final [facility]: [address] [facility], [place] Normal Alkaline Phosphatase 70 U/L 33-130 U/L Final [facility]: [address] [facility], [place] Normal Ast 16 U/L 10-35 U/L Final [facility]: [address] [place] [address], [place] Normal Alt 13 U/L 6-29 U/L Final [facility] [address] [facility] [place] 09/03/2016 CBC W/ Auto Diff Normal White Blood Cell Count 5.9 thousand/uL 3.8-10.8 thousand/uL Final [facility]: [address] [place] [address], [place] Normal Red Blood Cell Count 4.71 million/uL 3.80-5.10 million/ uL Final [facility]: [address] [facility], [place] Normal Hemoglobin 13.2 g/dL 11.7-15.5 g/dL Final [facility]: [address] [facility], [place] Normal Hematocrit 39.8 % 35.0-45.0 % Final [facility]: [address] [facility], [place] Normal Mcv 84.5 fL 80.0-100.0 fL Final [facility]: [address] [facility], [place] Normal Mch 28.1 pg 27.0-33.0 pg Final [facility]: [address] [facility], [place] Normal Mchc 33.2 g/dL 32.0-36.0 g/dL Final [facility]: [address] [facility], [place] High Rdw 15.7 % 11.0-15.0 % Final [facility]: [address] [place], [place] [address]vd, [place] Normal Platelet Count 241 thousand/uL 140-400 thousand/uL Final [facility]: [address] [place] [address], [place] Normal Mpv 11.4 fL 7.5-12.5 fL Final [facility]: [address], [place] Normal Absolute Neutrophils 3251 cells/uL 1164-9027 cells/uL [facility] Lab: [address] [place], [place] [id number] vd, [place] Normal Absolute Lymphocytes 2213 cells/uL 850-3900 cells/uL Final [facility]: [facility] [address], [place] Normal Absolute Monocytes 307 cells/uL 200-950 cells/uL Final [facility]: [address] [place] [address], [place] Normal Absolute Eosinophils 94 cells/uL 15-500 cells/uL [facility] Lab: [facility] [address], [place] Normal Absolute Basophils 35 cells/uL 0-200 cells/uL [facility] Lab: [address] [place] [address], [place] Normal Neutrophils 55.1 % [facility] Lab: [address] [place] [address], [place] Normal Lymphocytes 37.5 % [facility] Lab: [address] [place] [address], [place] Normal Monocytes 5.2 % [facility] Lab: [address] [place] [address], [place] Normal Eosinophils 1.6 % [facility] Lab: [address] [place] [address], [place] Normal Basophils 0.6 % [facility] Lab: [address] [place] [address], [place] 09/03/2016 PTH (Parathyroid Hormone), Intact, Serum or Plasma High Parathyroid Hormone, Intact 97 pg/mL 14-64 pg/mL Final [facility]: [address] [place] [address], [place] 09/03/2016 T4, Total, Serum Normal T4 (Thyroxine), Total 9.0 mcg/ dL 4.5-12.0 mcg/dL Final [facility]: [address] [place] [address], [place] 09/03/2016 TSH, Serum or Plasma Normal Tsh 0.97 mIU/L 0.40-4.50 mIU/L Final [facility]: [address] [place] [address], [place] 09/03/2016 Test in Question - No Test for Container Question/ problem: Final [facility]: [address] [place] [address], [place] Specimen(s) Received: frozen serum Final [facility]: [address] [place] [address], [place] Comment Final [facility]: [address] [place] [address], [place] 09/03/2016 Hepatitis C Virus RNA, Quant, PCR, Serum or Plasma HCV RNA, Quantitative Real Time PCR <15 IU/mL Final [facility]: [address] [place] [address], [place] HCV RNA, Quantitative Real Time PCR <1.18 logiu/mL Final [facility]: [address] [place] [address], [place] 09/03/2016 Fecal Occult Blood, Stool Fecal Globin Result: Incomplete [facility]: [address] [place] [address], [place] 04/13/2016 Lipid Panel, Serum Normal Cholesterol, Total 157 mg/dL 125-200 mg/dL Final [facility]: [address] [place] [address], [place] Normal HDL Cholesterol 52 mg/dL > or=46 mg/dL Final [facility]: [address] [place] [address], [place] Normal Triglycerides 99 mg/dL <150 mg/dL Final [facility]: [address] [place] [address], [place] Normal LDL-cholesterol 85 mg/dL (calc) <130 mg/dL (calc) Final [facility]: [address] [place] [address], [place] Normal Chol/hdlc Ratio 3.0 (calc) < or=5.0 (calc) Final [facility]: [address] [place] [address], [place] Normal Non HDL Cholesterol 105 mg/dL (calc) Final [facility]: [address] [place] [address], [place] 04/13/2016 CMP, Serum or Plasma High Glucose 104 mg/dL 65-99 mg/ dL Final [facility]: [address] [place] [address], [place] Normal Urea Nitrogen (BUN) 11 mg/dL 7-25 mg/dL Final [facility]: [address] [place] [address], [place] High Creatinine 1.07 mg/dL 0.50-0.99 mg/dL Final [facility]: [address] [facility], [place] Low eGFR Non-afr. Bhutanese 54 mL/min/1.73m2 > or=60 mL/min/ 1.73m2 Final [facility]: [address] [facility], [place] Normal eGFR 62 mL/min/1.73m2 > or=60 mL/min/ 1.73m2 Final [facility]: [address], [place] Normal BUN/creatinine Ratio 10 (calc) 6-22 (calc) Final [facility]: [address], [place] Normal Sodium 141 mmol/L 135-146 mmol/L Final [facility]: [address], [place] Low Potassium 3.3 mmol/L 3.5-5.3 mmol/L Final [facility]: [address], [place] Normal Chloride 102 mmol/L 98-110 mmol/L Final [facility]: [address], [place] Normal Carbon Dioxide 28 mmol/L 20-31 mmol/L Final [facility]: [address], [place] Normal Calcium 9.9 mg/dL 8.6-10.4 mg/dL Final [facility]: [address], [place] Normal Protein, Total 6.8 g/dL 6.1-8.1 g/dL Final [facility]: [address], [place] Normal Albumin 4.1 g/dL 3.6-5.1 g/dL Final [facility]: [address], [place] Normal Globulin 2.7 g/dL (calc) 1.9-3.7 g/dL (calc) Final [facility]: [address], [place] Normal Albumin/globulin Ratio 1.5 (calc) 1.0-2.5 (calc) Final [facility]: [address], [place] Normal Bilirubin, Total 0.4 mg/dL 0.2-1.2 mg/dL Final [facility]: [address], [place] Normal Alkaline Phosphatase 59 U/L 33-130 U/L Final [facility]: [address], [place] Normal Ast 17 U/L 10-35 U/L Final [facility]: [address], [place] Normal Alt 17 U/L 6-29 U/L Final [facility]: [address], [place] Lipid Panel, Serum Normal Cholesterol, Total 141 mg/dL 125-200 mg/dL Final [facility]: [address], [place] Normal HDL Cholesterol 51 mg/dL > or=46 mg/dL Final [facility]: [address], [place] Normal Triglycerides 92 mg/dL <150 mg/dL Final [facility]: [address], [place] Normal LDL-cholesterol 72 mg/dL (calc) <130 mg/dL (calc) Final [facility]: [address], [place] Normal Chol/hdlc Ratio 2.8 (calc) < or=5.0 (calc) Final [facility]: [address], [place] Normal Non HDL Cholesterol 90 mg/dL (calc) Final [facility]: [address], [place] CMP, Serum or Plasma High Glucose 151 mg/dL 65-99 mg/dL Final [facility]: [address], [place] Normal Urea Nitrogen (BUN) 10 mg/dL 7-25 mg/dL Final [facility]: [address], [place] High Creatinine 1.13 mg/dL 0.50-0.99 mg/dL Final [facility]: [address], [place] Low eGFR Non-afr. [place] 50 mL/min/1.73m2 > or=60 mL/min/ 1.73m2 Final [facility]: [address], [place] Low eGFR 58 mL/min/1.73m2 > or=60 mL/min/ 1.73m2 Final [facility]: [address], [place] Normal BUN/creatinine Ratio 9 (calc) 6-22 (calc) Final [facility]: [address], [place] Normal Sodium 138 mmol/L 135-146 mmol/L Final [facility]: [address], [place] Normal Potassium 3.5 mmol/L 3.5-5.3 mmol/L Final [facility]: [address], [place] Normal Chloride 105 mmol/L 98-110 mmol/L Final [facility]: [address], [place] Normal Carbon Dioxide 25 mmol/L 20-31 mmol/L Final [facility]: [address], [place] Normal Calcium 9.6 mg/dL 8.6-10.4 mg/dL Final [facility]: [address], [place] Normal Protein, Total 6.8 g/dL 6.1-8.1 g/dL [facility]: [address], [place] Normal Albumin 4.1 g/dL 3.6-5.1 g/dL [facility]: [address], [place] Normal Globulin 2.7 g/dL (calc) 1.9-3.7 g/dL (calc) Final [facility]: [address], [place] Normal Albumin/globulin Ratio 1.5 (calc) 1.0-2.5 (calc) [facility]: [address], [place] Normal Bilirubin, Total 0.4 mg/dL 0.2-1.2 mg/dL Final [facility]: [address], [place] Normal Alkaline Phosphatase 66 U/L 33-130 U/L [facility]: [address] [facility], [place] Normal Ast 16 U/L 10-35 U/L [facility]: [address] [facility], [place] Normal Alt 12 U/L 6-29 U/L [facility]: [address], [place] CBC W/ Auto Diff Normal White Blood Cell Count 4.6 thousand/uL 3.8-10.8 thousand/uL [facility]: [address], [place] Normal Red Blood Cell Count 4.90 million/uL 3.80-5.10 million/ uL [facility]: [address], [place] Normal Hemoglobin 13.3 g/dL 11.7-15.5 g/dL Final [facility]: [address] [facility], [place] Normal Hematocrit 41.8 % 35.0-45.0 % [facility]: [address] [facility], [place] Normal Mcv 85.3 fL 80.0-100.0 fL [facility]: [address] [facility], [place] Normal Mch 27.1 pg 27.0-33.0 pg [facility]: [address] [facility], [place] Low Mchc 31.8 g/dL 32.0-36.0 g/dL Final [facility]: [address] [facility], [place] High [address]w 15.6 % 11.0-15.0 % [facility]: [address], [place] Normal Platelet Count 215 thousand/uL 140-400 thousand/uL Final [facility]: [address] [facility], [place] Normal Mpv 11.8 fL 7.5-12.5 fL [facility]: [address], [place] Normal Absolute Neutrophils 2341 cells/uL 2026-4159 cells/uL Final [facility]: [address], [place] Normal Absolute Lymphocytes 1969 cells/uL 850-3900 cells/uL [facility]: [address], [place] Low Absolute Monocytes 189 cells/uL 200-950 cells/uL Final [facility]: [address], [place] Normal Absolute Eosinophils 74 cells/uL 15-500 cells/uL Final [facility]: [address], [place] Normal Absolute Basophils 28 cells/uL 0-200 cells/uL Final [facility]: [address], [place] Normal Neutrophils 50.9 % [facility]: [address], [place] Normal Lymphocytes 42.8 % [facility]: [address], [place] Normal Monocytes 4.1 % [facility]: [address], [place] Normal Eosinophils 1.6 % [facility]: [address] [facility], [place] Normal Basophils 0.6 % [facility]: [address] [facility], [place] Albumin:creatinine Ratio, Urine Type Urine Microlalbumin 80 mg/ L [facility]: [address] [address], [place] Type Urine Creatinine 300 mg/dL [facility]: [address] Type A:C Ratio 30-300 mg/g (Abnormal) [facility] : [address] Past Encounters 09/02/2017 Anemia Due to Chronic Blood Loss Jay Anders MD: [address] [facility], [address] [address], Ph. 08/16/2017 Hypertensive Heart and Renal Disease; Chronic Kidney Disease Stage 3; Hyperparathyroidism Due to Renal Insufficiency; Intra-abdominal and Pelvic Swelling, Mass and Lump; Schizophrenia; Deep Venous Thrombosis of Lower Extremity; Pure Hypercholesterolemia Jay Anders MD: [address] [place] [phone], Ph. 05/24/2017 Follow-up Visit; Syncope and Collapse; Mass of Ovary; Hypertensive Heart and Renal Disease; Chronic Kidney Disease Stage 3; Prediabetes; Pure Hypercholesterolemia Jay Anders MD: [address] [place] [phone], Ph. 05/11/2017 Edema of Lower Extremity; Deep Venous Thrombosis of Lower Extremity CACHORRO Bales: [address] [place] [phone], Ph. [phone] 02/22/2017 Hypertensive Heart and Renal Disease; Body Mass Index 30+ - Obesity; Influenza Vaccination; Depression Screening JUSTINO Roman: [address] [place] [phone], Ph. 11/23/2016 Hypertensive Heart and Renal Disease; Constipation; Chronic Kidney Disease Stage 3; Pure Hypercholesterolemia; Hyperparathyroidism Due to Renal Insufficiency CACHORRO Bales: [address] [place] [phone], Ph. 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 07/28/2016 CACHORRO Bales: [address] [phone], Ph. 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 [phone] 04/13/2016 Pure Hypercholesterolemia; Hypertensive Heart Disease; Bladder Muscle Dysfunction - Overactive; Immunization Glenis Suazo CASER UP: [id number] [facility], [address], [place] [address], Ph. Social History Smoking Status Never Smoker Vaccine List Vaccine Type influenza, high dose seasonal 04/13/20160.5 mL 02/22/20170.5 mL influenza, injectable, quadrivalent 04/22/2015 influenza, seasonal, injectable 04/24/2014 pneumococcal conjugate PCV 13 04/13/20160.5 mL pneumococcal, unspecified formulation 06/13/2012 Tdap 11/27/2008 Plan of Care Patient Instructions It was good to see you in the office today for your Medicare Annual Wellness Visit. You have been provided some information on healthy nutrition, including a diet rich in fruits and vegetables, minimizing simple carbohydrates, salt, and saturated fats. I want to encourage regular cardiovascular exercise such as walking at least 30 minutes daily, 5 times per week. Please remember to schedule any preventive health measures that we talked about today. You have also been provided education on fall prevention and community- based lifestyle interventions to help reduce health risks and promote healthy living. Screening Recommendations 1. Vaccines Pneumococcal: Your next one in:04/2017 Influenza: This Fall Shingles: Recommended today Tetanus: Recommended today 2. Mammography Screening: Your next mammogram in:2017 3. Colorectal cancer Screening Colonoscopy: Recommended today Fecal Occult Blood: No screening necessary 4. Bone Mass Measurement: Your next DEXA in:2017 5. Pap test / Pelvic Exam Screening: No screening necessary 6. Eye Exam Screening: Ordered 7. Cholesterol Screening: Ordered 8. Diabetes Screening: Ordered Reminders Provider Appointments None recorded. Lab None recorded. Referral None recorded. Procedures None recorded. Surgeries None recorded. Imaging None recorded. Vitals 09/02/2017 09:00AM Est Patient Height Weight BMI Blood Pressure 5 ft 1 in 165 lbs 31.2 kg/m2 128/62 mm[Hg] 08/16/2017 10:15AM Est Patient Height Weight BMI Blood Pressure 5 ft 1 in 169.6 lbs 32 kg/m2 147/114 mm[Hg] 05/24/2017 10:30AM TCM - Moderate Risk Height Weight BMI Blood Pressure 5 ft 1 in 170 lbs 32.1 kg/m2 125/78 mm[Hg] 05/11/2017 10:15AM Est Patient Height Weight BMI Blood Pressure 5 ft 1 in 177 lbs 33.4 kg/m2 139/84 mm[Hg] 02/22/2017 09:45AM Est Patient Height Weight BMI Blood Pressure 5 ft 1 in 177 lbs 33.4 kg/m2 164/95 mm[Hg] 11/23/2016 10:15AM Est Patient Height Weight BMI Blood Pressure 5 ft 7.7 in 176.2 lbs 27 kg/m2 147/88 mm[Hg] 09/03/2016 09:30AM BAR HOSTESS/EST CPX Height Weight BMI Blood Pressure 5 ft 7.7 in 180.2 lbs 27.6 kg/m2 (1) 185/109 mm[Hg] (2) 191/94 mm[Hg] (3) 158/92 mm[Hg] 07/14/2016 09:00AM Est Patient Height Weight BMI Blood Pressure 5 ft 7.7 in 180.2 lbs 27.6 kg/m2 139/90 mm[Hg] 04/13/2016 09:00AM Est Patient Height Weight BMI Blood Pressure 5 ft 7.7 in 181.8 lbs 27.9 kg/m2 138/80 mm[Hg] 10/21/2015 Height Weight BMI Blood Pressure 5 ft 7.7 in 185 lbs 28.38 kg/m2 159/83 mm[Hg] 09/15/2015 Height Weight BMI Blood Pressure 5 ft 7.7 in 182 lbs 27.92 kg/m2 127/68 mm[Hg] 08/06/2015 Height Weight BMI Blood Pressure 5 ft 7.7 in 189.4 lbs 29.05 kg/m2 128/76 mm[Hg] 07/22/2015 Height Weight BMI Blood Pressure 5 ft 7.7 in 188 lbs 28.84 kg/m2 140/76 mm[Hg] 04/22/2015 Height BMI 5 ft 7.7 in 28.68 kg/m2 04/22/2015 Weight Blood Pressure 187 lbs 132/70 mm[Hg] 01/21/2015 Height Weight BMI Blood Pressure 5 ft 7.7 in 185.8 lbs 28.50 kg/m2 124/70 mm[Hg] 10/22/2014 Height Weight BMI Blood Pressure 5 ft 7.7 in 183 lbs 28.07 kg/m2 134/72 mm[Hg] 07/23/2014 Height Weight BMI Blood Pressure 5 ft 7.7 in 178.4 lbs 27.36 kg/m2 120/80 mm[Hg] 05/01/2014 Height Weight BMI Blood Pressure 5 ft 7.7 in 185 lbs 28.38 kg/m2 122/78 mm[Hg] 04/24/2014 Height Weight BMI Blood Pressure 5 ft 7.7 in 186.2 lbs 28.56 kg/m2 120/76 mm[Hg] 02/12/2014 Height Weight 5 ft 7.7 in 186.4 lbs 01/23/2014 Height Weight 5 ft 7.7 in 186 lbs 10/24/2013 Height Weight 5 ft 7.7 in 186 lbs 07/24/2013 Height Weight 5 ft 7.75 in 189.2 lbs 05/08/2013 Height Weight 5 ft 7.75 in 189 lbs 02/07/2013 Height Weight 5 ft 1.75 in 187.2 lbs 11/08/2012 Height Weight 5 ft 1.75 in 186.3 lbs 08/02/2012 Height Weight 5 ft 1.75 in 188.4 lbs 04/25/2012 Height Weight 5 ft 1.75 in 190.8 lbs 01/25/2012 Height Weight 5 ft 1.75 in 195.6 lbs 10/26/2011 Height Weight 5 ft 1.75 in 193 lbs 07/28/2011 Height Weight 5 ft 1.75 in 196 lbs 04/29/2011 Height Weight 5 ft 1.75 in 194 lbs 01/27/2011 Height Weight 5 ft 1.75 in 195 lbs 10/28/2010 Height Weight 5 ft 1.75 in 198 lbs 07/29/2010 Height Weight 5 ft 1.75 in 203 lbs 04/15/2010 Height Weight 5 ft 1.75 in 196.8 lbs 01/14/2010 Height Weight 5 ft 1.75 in 196 lbs 11/05/2009 Weight 197 lbs 09/02/2009 Weight 196.8 lbs 06/04/2009 Weight 197 lbs 03/05/2009 Weight 195 lbs 11/27/2008 Height Weight 5 ft 1.75 in 191 lbs 08/26/2008 Weight 190 lbs 05/28/2008 Weight 184.5 lbs 03/21/2008 Weight 192.7 lbs 12/06/2007 Weight 192.5 lbs 08/23/2007 Weight 194.2 lbs 05/24/2007 Weight 196.2 lbs 02/22/2007 Weight 203.2 lbs 01/25/2007 Weight 206.8 lbs 10/19/2006 Weight 209 lbs 07/18/2006 Weight 205.2 lbs 05/18/2006 Weight 207.1 lbs 04/08/2006 Weight 206.5 lbs
[2017-11-16] MEDS ORDERED: ENOXAPARIN SOD INJ 40 MG/0.4 ML SYR SC ONE (08:16)
[2017-11-16] MEDS ORDERED: SODIUM CHLORIDE 0.9% 100 ML 100 ML ONE (09:40)
[2017-11-16] MEDS ORDERED: SUGAMMADEX SODIUM 200 MG/2 ML VIAL IV ONE (12:30)
[2017-11-16] MEDS ORDERED: ACETAMINOPHEN 1000 MG/100 ML IV PRN (12:30)
[2017-11-16] MEDS: SODIUM CHLORIDE 0.9% 250ML IRRIG IR SCH ×3 (12:30→21:33)
[2017-11-16] MEDS ORDERED: HYDROMORPHONE 1MG/1ML INJ IV PRN (12:30)
[2017-11-16] MEDS ORDERED: FENTANYL CITRATE/PF 100MCG/2 ML INJ ONE ×2 (12:52→18:25)
--- NOTE | 2017-11-16 13:49 | Operative Report ---
DATE OF PROCEDURE: November 16, 2017 PREOPERATIVE DIAGNOSIS: Large abdominal mass, probable ovarian carcinoma. POSTOPERATIVE DIAGNOSIS: Carcinoma of the right ovary. OPERATION PERFORMED: 1. Exploratory laparotomy. 2. Total abdominal hysterectomy with bilateral salpingo-oophorectomy. 3. Omentectomy. 4. Appendectomy. 5. Peritoneal lavage for cytology. BACK SIZER: Thea PONCE. ANESTHESIA: General. COMPLICATIONS: None. ESTIMATED BLOOD LOSS: 200 mL. DESCRIPTION OF PROCEDURE: With the patient lying in bed in the supine position under good general endotracheal anesthesia, the abdomen was prepped with Betadine solution and draped in the usual manner. A midline incision was made to extend the majority of the midline fascia and due to the fact that there was a very large mass contained within the abdomen that extended all the way into the epigastrium. The incision was deepened through the subcutaneous tissue and through the midline fascia. The peritoneum was opened, and the abdomen was entered. Upon entering the abdominal cavity, a very large mass that appeared to be emanating from the right ovary was encountered. There was some small amount of fluid in the pelvis, and this was aspirated and sent for cytology. Examination at this point revealed that the mass extended the entire size of the abdominal cavity. On examination it was impossible to separate the mass from the uterus. The uterus was totally plastered to the anterior aspect of the mass. There was no sign of any metastatic spread of disease within the abdominal cavity, the omentum onto the small bowel. Several loops of small bowel, though, were stuck to the top of the mass in the upper abdomen. The small bowel as well as the colon was then from the mass completely and freed up. After this was done, we were able then to get access to the ovarian pedicle on the right side, and this was doubly ligated with 0 Vicryl ties and divided. We were then able to bring the mass partially out of the abdominal cavity, and again the mass was totally stuck to the uterus and also stuck to the bladder anteriorly and it could not be . This was not an ovarian mass that could be totally and simply had done an oophorectomy on. Rather, a hysterectomy had to be done with the mass attached to the uterus as the uterus was totally thinned out and plastered to the anterior aspect of the mass. The left ovarian pedicle was then identified and similarly ligated with 0 Vicryl and divided. The right and the left ureters were identified and preserved. The ovarian pedicle and the round ligament were taken down on both sides towards the midline using the Enseal device. Anteriorly we then the bladder from the neck of the uterus and the mass. This was rather plastered in this area, and a small serosal tear was made but this was not a [id number] tear of the bladder because it was tightly adherent to the uterus anteriorly. Nonetheless, the bladder was then swept downward. Once this was done, the uterine pedicles were then taken down with suture ligatures of 0 Vicryl, and we were then able to get around the neck of the cervix and we decided that it would be best if we went ahead and divided the cervix and get the mass out of the way and then take the rest of the cervix out afterwards. The cervix was then clamped on both sides and divided, and we were then able to deliver the mass and send it for pathological examination. 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 Once this was done, we had free access to the abdominal cavity. Again the right and the left ureters were identified and we made sure that they were intact, and they were. The rest of the cervix was then taken down by taking down the uterine ligaments all the way down to the vagina, suture ligating them with [address] down. Once this was done, the vagina was then divided and the cervix was totally extracted. A crown suture of 0 Vicryl was then used to get hemostasis in the vagina, and the vagina was further closed with interrupted sutures of 0 Vicryl. The whole area was irrigated, and perfect hemostasis was ascertained. The serosal tear of the bladder was closed with a running layer of 3-0 Vicryl and also a running layer of 2-0 Monocryl, and the peritoneum was then closed over the vaginal cuff and the bladder with a running suture of 2-0 Vicryl. We decided to go ahead and remove the appendix while we were waiting for the frozen section. The appendix was ligated at the base with 0 Vicryl and divided. The mesentery of the appendix was taken down with the Enseal device, and the appendiceal stump was then inverted with a purse-string suture of 3-0 Vicryl. At this point, we got the pathology report that that was consistent with an ovarian cancer. So, we decided to go ahead and do an omentectomy, and a complete omentectomy was done with the cautery and the Enseal device. The entire omentum was sent for pathological examination. After this was done, the whole abdomen was then copiously irrigated. Perfect hemostasis was ascertained, and the abdomen was then closed in layers. The peritoneum was closed with a running suture of number 1 Vicryl. The midline fascia was closed with a running suture of number 1 PDS. The subcutaneous tissue was approximated with 2-0 chromic, and the skin was closed with clips. A dressing was applied. The sponge, lap and needle count was correct. The patient tolerated the procedure well and returned to the recovery room in stable condition. Job#: [id number]
[2017-11-16] MEDS ORDERED: CEFAZOLIN SOD 1 GM/NS 50ML 50 ML IV SCH (14:00)
--- OUTSIDE RECORDS SUMMARY | 2017-11-16 16:49 | XMS REPORT | Clinical Summary ---
Author Author [facility] Organization [facility] Address Unknown Phone Unavailable Care Team Providers Care [employer] Power[employer] Supervisor Name Role Phone Antwan Anders MD PCP [...] Taken Blood Pressure 144/65 05/14/2017 2:58 PM MANAGER CLIENT SERVICE Pulse 109 05/14/2017 2:58 PM MANAGER CLIENT SERVICE Temperature 37.3 C (99.1 F) 05/14/2017 2:58 PM MANAGER CLIENT SERVICE Respiratory Rate 18 05/14/2017 2:58 PM MANAGER CLIENT SERVICE Oxygen Saturation 98% 05/14/2017 2:58 PM MANAGER CLIENT SERVICE Inhaled Oxygen - - Concentration Weight 83 kg (182 lb 14.4 oz) 05/13/2017 7:32 PM MANAGER CLIENT SERVICE Height 157.5 cm (5' 2") 05/13/2017 7:32 PM MANAGER CLIENT SERVICE Body Mass Index 33.45 05/13/2017 7:32 PM MANAGER CLIENT SERVICE Plan of Treatment Health Maintenance Due Date Last Done Comments BREAST CANCER SCREENING 1999 COLON CANCER SCREENING 1999 SHINGRIX VACCINE (#1) 1999 ZOSTER VACCINE 2009 PNEUMOCOCCAL 2014 POLYSACCHARIDE VACCINE AGE 65 AND OVER PNEUMOCOCCAL-13 2014 INFLUENZA VACCINE 01/11/2018 Procedures Procedure Name Priority Date/Time Associated Diagnosis Comments [facility] CRIT[facility], ADDL 30 Routine 05/13/2017 Results for this MIN 2:33 AM MANAGER CLIENT SERVICE procedure are in the results section. after [...] and Americans. Specimen Performing Laboratory Plasma specimen [facility] DEPARTMENT OF PATHOLOGY AND GENOMIC MEDICINE [address] [place] [address] * CBC with platelet and differential (05/13/2017 [...] - 1.0 % Specimen Performing Laboratory Blood [facility] DEPARTMENT OF PATHOLOGY AND GENOMIC MEDICINE [address] [place] [address] * Basic metabolic panel (05/13/2017 1:27 PM) [...] 10.7 mg/dL Specimen Performing Laboratory Plasma specimen [facility] DEPARTMENT OF PATHOLOGY AND GENOMIC MEDICINE [address] [place] [address] * Urinalysis screen and microscopy, with reflex [...] None seen UA Specimen Performing Laboratory Urine [facility] DEPARTMENT OF PATHOLOGY AND GENOMIC MEDICINE [address] [place] [address] * Gram stain (05/13/2017 4:24 AM) Component Value Ref Range Gram stain result Rare WBC's Occasional Gram positive cocci in pairs Comment: Specimen Information Specimen Source: Urine Specimen Site: Clean catch Specimen Performing Laboratory Urine [facility] DEPARTMENT OF PATHOLOGY AND GENOMIC MEDICINE [address] [place] [address] * Urine culture (05/13/2017 4:24 AM) Component Value Ref Range Urine culture isolate Gram negative rods 10-2 cfu/ml (A) Comment: Specimen Information Specimen Source: Urine Specimen Site: Clean catch Urine culture isolate Mixed Gram positive francis 10-1 cfu/ml (A) Urine culture isolate Streptococcus anginosus group 10-5 cfu/ml (A) Specimen Performing Laboratory Urine [facility] DEPARTMENT OF PATHOLOGY AND GENOMIC MEDICINE [address] [place] [address] * CT Angiogram Pe Chest (05/13/2017 2:58 AM) Specimen [place] [address] ANGIOGRAM PE CHEST INDICATION:sob TECHNIQUE: [...] correlation is recommended. 4. Upper abdominal ascites. [facility]-[id number] Procedure Note [facility], Radiology Results Incoming - 05/13/2017 3:08 [address]NAGER CLIENT SERVICE CT ANGIOGRAM PE CHEST INDICATION: sob TECHNIQUE: [...] correlation is recommended. 4. Upper abdominal ascites. [facility]-[id number] * CRITICAL CARE (05/13/2017 2:33 AM) Narrative Es Pereyra MD 05/13/20172:33 AM Critical Care Performed by: ES PEREYRA Authorized by: ES PEREYRA Critical care provider statement: Critical care time (minutes):32 Critical care was necessary to treat or prevent imminent or life-threatening deterioration of the following conditions:Cardiac failure, circulatory failure and [employer] SUPERVISOR failure or compromise Critical care was time [...] myocardial injury. Specimen Performing Laboratory Plasma specimen [facility] DEPARTMENT OF PATHOLOGY AND GENOMIC MEDICINE [address] [place] [address] * Prothrombin time with INR (05/13/2017 1:02 [...] values over 4.0. Specimen Performing Laboratory Blood [facility] DEPARTMENT OF PATHOLOGY AND GENOMIC MEDICINE [address] [place] [address] * B natriuretic peptide (05/13/2017 1:02 AM) Component Value Ref Range BNP 13 0 - 100 pg/mL Specimen Performing Laboratory Blood [facility] DEPARTMENT OF PATHOLOGY AND GENOMIC MEDICINE [address] [place] [address] * Comprehensive metabolic panel (05/13/2017 1:02 AM) [...] 1.2 mg/dL Specimen Performing Laboratory Plasma specimen [facility] DEPARTMENT OF PATHOLOGY AND GENOMIC MEDICINE [address] [facility] [place] [address] * XR Chest 1 Vw Portable (05/13/2017 12:50 AM) Specimen Performing Laboratory [facility] [address] [place] [address] Narrative EXAMINATION:XR CHEST 1 VW PORTABLE CLINICAL [...] identified. No acute osseous abnormalities are visualized. [facility]-[id number] Procedure Note Interface, Radiology Results Incoming - 05/13/2017 1:03 AM MANAGER CLIENT SERVICE EXAMINATION: XR CHEST 1 VW PORTABLE CLINICAL [...] identified. No acute osseous abnormalities are visualized. [facility]-[id number] * ECG ED Preliminary Interpretation - NOT AN ORDER (05/13/2017 12:39 AM) Narrative Es Pereyra MD 05/13/2017 12:39 AM ECG ED Preliminary Interpretation - Not an Order Performed by: ES PEREYRA Authorized by: ES PEREYRA ECG reviewed by ED Physician in the absence of a chromium plater: yes Previous ECG: Previous ECG:Compared to current Interpretation: Interpretation: normal Rate: ECG rate:104 ECG rate assessment: normal Rhythm: Rhythm: sinus rhythm Ectopy: Ectopy: none QRS: QRS axis:Normal Conduction: Conduction: normal ST segments: ST segments:Normal T waves: T waves: normal * ECG 12 lead (05/13/2017 12:35 AM) Component Value Ref Range Ventricular rate 104 Atrial rate 104 LA interval 124 QRSD interval 64 QT interval 358 QTC interval 470 P axis 1 45 QRS axis 1 66 T wave axis 2 EKG impression Sinus tachycardia-Cannot rule out Anterior infarct , age undetermined-Abnormal ECG-No previous ECGs available- Specimen Performing Laboratory [facility] MUSE [address] [place] [address] after 11/15/2016 Insurance Payer Benefit Subscriber ID Type Phone Address Plan / Group [employer] TEX[employer] xxxxxxxxx O [facility] [place] [address]
[2017-11-16] MEDS: DEXTROSE 5%/LACTATED RINGERS 1,000 ML IV SCH ×2 (17:12→21:38)
[2017-11-16] MEDS: CEFAZOLIN SOD 1 GM VIAL IV SCH (17:59)
[2017-11-16] MEDS: NITROGLYCERIN 2% OINT 1 GM PKT TOP SCH (17:59)
[2017-11-16] MEDS: PANTOPRAZOLE 40 MG 10ML VIAL IV SCH (17:59)
[2017-11-16] MEDS ORDERED: ONDANSETRON HCL INJ 2 MG/ML VIAL ONE (18:22)
[2017-11-16] MEDS ORDERED: HYDRALAZINE HCL 20 MG/ML VIAL ONE (18:22)
[2017-11-16] MEDS ORDERED: LIDOCAINE HCL 2% LOCAL INJ 5 ML SDV VIAL INJ ONE (18:22)
[2017-11-16] MEDS ORDERED: SEVOFLURANE INHAL SOLN 250 ML PEN BTL ONE (18:22)
[2017-11-16] MEDS ORDERED: ROCURONIUM BROMIDE 10 MG/ML 5ML VIAL ONE (18:22)
[2017-11-16] MEDS ORDERED: PROPOFOL IV EMULSION 10 MG/ML 20 ML VIAL ONE (18:22)
[2017-11-16] MEDS ORDERED: DEXAMETHASONE SOD PHOS INJ 4 MG/ML VIAL ONE (18:22)
[2017-11-16] MEDS ORDERED: PHENYLEPHRINE HCL 1% 10 MG/ML VIAL ONE (18:22)
[2017-11-16] MEDS ORDERED: LABETALOL HCL 5 MG/ML 20ML VIAL ONE (18:22)
[2017-11-16] MEDS: HYDROMORPHONE 2MG/ML INJ IV PRN ×2 (18:26→21:41)
[2017-11-17] VITALS (39 sets, daily range): BP systolic 127–167; BP diastolic 53–91
[2017-11-17] MEDS: NITROGLYCERIN 2% OINT 1 GM PKT TOP SCH ×5 (00:11→23:32)
[2017-11-17] MEDS: CEFAZOLIN SOD 1 GM VIAL IV SCH (00:11)
[2017-11-17] MEDS: SODIUM CHLORIDE 0.9% 250ML IRRIG IR SCH ×7 (00:30→21:31)
[2017-11-17] MEDS: DEXTROSE 5%/LACTATED RINGERS 1,000 ML IV SCH (04:29)
[2017-11-17] MEDS: HYDROMORPHONE 2MG/ML INJ IV PRN ×4 (04:30→16:25)
[2017-11-17 05:55] LABS: BASOPHILS % 0.2 % (0.0-1.0); HEMATOCRIT 30.5 % (34.2-44.1); HEMOGLOBIN 9.8 g/dL (12.0-16.0); LYMPHOCYTES # (AUTO) 1.4 (1.0-3.2); LYMPHOCYTES % 14.2 % (18.0-39.1); MEAN CORPUSCULAR HEMOGLOBIN 26.7 pg (28-32); MEAN CORPUSCULAR HGB CONC 32.1 g/dL (31-35); MEAN CORPUSCULAR VOLUME 83.1 fL (81-99); MONOCYTES # (AUTO) 0.8 (0.2-0.8); MONOCYTES % 8.5 % (4.4-11.3); NEUTROPHILS # (AUTO) 7.5 (2.1-6.9); NEUTROPHILS % 76.4 % (38.7-80.0); PLATELET COUNT 304 x10e3/uL (140-360); RED BLOOD COUNT 3.67 x10e6/uL (3.6-5.1)
[2017-11-17 06:32] LABS: ANION GAP 10.1 mmol/L (8-16); BLOOD UREA NITROGEN 9 mg/dL (7-26); BUN/CREATININE RATIO 12 (6-25); CALCIUM 8.4 mg/dL (8.4-10.2); CARBON DIOXIDE 30 mmol/L (22-29); CHLORIDE 101 mmol/L (98-107); CREATININE, SERUM 0.76 mg/dL (0.57-1.11); EST GLOMERULAR FILTRATION RATE > 60 ML/MIN (60-); GLUCOSE 156 mg/dL (74-118); POTASSIUM 3.1 mmol/L (3.5-5.1); SODIUM 138 mmol/L (136-145)
[2017-11-17] MEDS: DEXTROSE IV SCH ×3 (08:12→23:01)
[2017-11-17] MEDS: POTASSIUM CHLORIDE IV SCH ×3 (08:12→23:01)
[2017-11-17] MEDS: LACTATED RINGERS IV SCH ×3 (08:12→23:01)
[2017-11-17] MEDS: PANTOPRAZOLE 40 MG 10ML VIAL IV SCH (13:24)
[2017-11-17] MEDS ORDERED: HYDROMORPHONE 1MG/1ML INJ ONE (16:25)
[2017-11-17] MEDS: ENOXAPARIN SOD INJ 40 MG/0.4 ML SYR SC SCH (17:19)
[2017-11-17] MEDS: HYDROMORPHONE 1MG/1ML INJ IV PRN ×2 (19:45→23:34)
[2017-11-18] VITALS (7 sets, daily range): BP systolic 153–182; BP diastolic 70–77
[2017-11-18] MEDS: HYDROMORPHONE 1MG/1ML INJ IV PRN ×4 (03:17→15:22)
[2017-11-18] MEDS: SODIUM CHLORIDE 0.9% 250ML IRRIG IR SCH ×3 (04:06→12:04)
[2017-11-18] MEDS: POTASSIUM CHLORIDE IV SCH ×3 (04:06→16:46)
[2017-11-18] MEDS: LACTATED RINGERS IV SCH ×3 (04:06→16:46)
[2017-11-18] MEDS: DEXTROSE IV SCH ×3 (04:06→16:46)
[2017-11-18] MEDS: NITROGLYCERIN 2% OINT 1 GM PKT TOP SCH ×3 (05:45→17:14)
[2017-11-18 06:55] LABS: BASOPHILS % 0.2 % (0.0-1.0); HEMATOCRIT 30.4 % (34.2-44.1); HEMOGLOBIN 9.5 g/dL (12.0-16.0); LYMPHOCYTES # (AUTO) 1.3 (1.0-3.2); LYMPHOCYTES % 13.4 % (18.0-39.1); MEAN CORPUSCULAR HEMOGLOBIN 26.5 pg (28-32); MEAN CORPUSCULAR HGB CONC 31.3 g/dL (31-35); MEAN CORPUSCULAR VOLUME 84.9 fL (81-99); MONOCYTES % 10.2 % (4.4-11.3); NEUTROPHILS # (AUTO) 7.4 (2.1-6.9); PLATELET COUNT 281 x10e3/uL (140-360); RED BLOOD COUNT 3.58 x10e6/uL (3.6-5.1); RED CELL DISTRIBUTION WIDTH 15.9 % (11.7-14.4)
[2017-11-18 07:08] LABS: ANION GAP 7.6 mmol/L (8-16); BLOOD UREA NITROGEN 7 mg/dL (7-26); BUN/CREATININE RATIO 9 (6-25); CALCIUM 8.5 mg/dL (8.4-10.2); CARBON DIOXIDE 31 mmol/L (22-29); CHLORIDE 99 mmol/L (98-107); CREATININE, SERUM 0.75 mg/dL (0.57-1.11); EST GLOMERULAR FILTRATION RATE > 60 ML/MIN (60-); GLUCOSE 139 mg/dL (74-118); POTASSIUM 3.6 mmol/L (3.5-5.1); SODIUM 134 mmol/L (136-145)
[2017-11-18] MEDS ORDERED: BISACODYL 10 MG SUPP PR ONE (11:30)
[2017-11-18] MEDS: PANTOPRAZOLE 40 MG 10ML VIAL IV SCH (15:13)
[2017-11-18] MEDS: TRIFLUOPERAZINE 1 MG PO SCH (17:00)
[2017-11-18] MEDS: ENOXAPARIN SOD INJ 40 MG/0.4 ML SYR SC SCH (17:13)
[2017-11-18] MEDS ORDERED: MAGNESIUM HYDROXIDE 30 ML UDC PO ONE (21:00)
[2017-11-18] MEDS: HYDROCODONE/APAP 7.5MG-325MG 1 EA TAB PO PRN (21:08)
[2017-11-18] MEDS: BISACODYL 10 MG SUPP PR SCH (21:30)
[2017-11-18] MEDS: ONDANSETRON HCL INJ 2 MG/ML VIAL IV PRN (22:10)
[2017-11-19] VITALS (7 sets, daily range): BP systolic 158–184; BP diastolic 71–81
[2017-11-19] MEDS: NITROGLYCERIN 2% OINT 1 GM PKT TOP SCH ×4 (00:45→18:08)
[2017-11-19] MEDS: HYDROCODONE/APAP 7.5MG-325MG 1 EA TAB PO PRN ×3 (03:30→18:09)
[2017-11-19] MEDS: LOSARTAN POTASSIUM 100 MG TAB PO SCH (06:03)
[2017-11-19 07:25] LABS: BASOPHILS % 0.4 % (0.0-1.0); EOSINOPHILS % 0.2 % (0.0-6.0); HEMATOCRIT 30.2 % (34.2-44.1); HEMOGLOBIN 9.6 g/dL (12.0-16.0); LYMPHOCYTES # (AUTO) 1.3 (1.0-3.2); LYMPHOCYTES % 16.1 % (18.0-39.1); MEAN CORPUSCULAR HEMOGLOBIN 26.4 pg (28-32); MEAN CORPUSCULAR HGB CONC 31.8 g/dL (31-35); MEAN CORPUSCULAR VOLUME 83.2 fL (81-99); MONOCYTES # (AUTO) 0.7 (0.2-0.8); MONOCYTES % 8.9 % (4.4-11.3); NEUTROPHILS # (AUTO) 6.1 (2.1-6.9); PLATELET COUNT 307 x10e3/uL (140-360); RED BLOOD COUNT 3.63 x10e6/uL (3.6-5.1); RED CELL DISTRIBUTION WIDTH 15.5 % (11.7-14.4)
[2017-11-19 07:42] LABS: ANION GAP 10.4 mmol/L (8-16); BLOOD UREA NITROGEN 8 mg/dL (7-26); BUN/CREATININE RATIO 11 (6-25); CALCIUM 8.7 mg/dL (8.4-10.2); CARBON DIOXIDE 32 mmol/L (22-29); CHLORIDE 100 mmol/L (98-107); CREATININE, SERUM 0.72 mg/dL (0.57-1.11); EST GLOMERULAR FILTRATION RATE > 60 ML/MIN (60-); GLUCOSE 119 mg/dL (74-118); POTASSIUM 3.4 mmol/L (3.5-5.1); SODIUM 139 mmol/L (136-145)
[2017-11-19] MEDS: HYDROCHLOROTHIAZIDE 25 MG TAB PO SCH (08:04)
[2017-11-19] MEDS: TRIFLUOPERAZINE 1 MG PO SCH ×2 (08:04→17:00)
[2017-11-19] MEDS: VERAPAMIL HCL 240 MG TABSR PO SCH (08:04)
[2017-11-19] MEDS: BISACODYL 10 MG SUPP PR SCH (08:04)
[2017-11-19] MEDS: HYDROMORPHONE 1MG/1ML INJ IV PRN ×2 (08:27→13:11)
[2017-11-19] MEDS: ONDANSETRON HCL INJ 2 MG/ML VIAL IV PRN (08:27)
[2017-11-19] MEDS ORDERED: NON-FORMULARY MEDICATION (Losartan/Hydrochlorothiazide (Losartan-Hctz 100-25 Mg Tab) 1 TAB PO SCH (09:00)
[2017-11-19] MEDS: PANTOPRAZOLE 40 MG 10ML VIAL IV SCH (13:11)
[2017-11-19] MEDS ORDERED: MINERAL OIL 132 ML BTL PR ONE (14:00)
[2017-11-19] MEDS: DEXTROSE IV SCH (16:13)
[2017-11-19] MEDS: POTASSIUM CHLORIDE IV SCH (16:13)
[2017-11-19] MEDS: LACTATED RINGERS IV SCH (16:13)
[2017-11-19] MEDS: ENOXAPARIN SOD INJ 40 MG/0.4 ML SYR SC SCH (18:08)
[2017-11-20] VITALS (8 sets, daily range): BP systolic 145–193; BP diastolic 51–84
[2017-11-20] MEDS: NITROGLYCERIN 2% OINT 1 GM PKT TOP SCH ×4 (01:08→17:18)
[2017-11-20] MEDS: VERAPAMIL HCL 240 MG TABSR PO SCH (08:30)
[2017-11-20] MEDS: HYDROCHLOROTHIAZIDE 25 MG TAB PO SCH (08:30)
[2017-11-20] MEDS: LOSARTAN POTASSIUM 100 MG TAB PO SCH (08:30)
[2017-11-20] MEDS: TRIFLUOPERAZINE 1 MG PO SCH ×2 (08:31→17:00)
[2017-11-20] MEDS: HYDROCODONE/APAP 7.5MG-325MG 1 EA TAB PO PRN ×3 (09:00→20:17)
[2017-11-20] MEDS: DEXTROSE IV SCH (10:13)
[2017-11-20] MEDS: POTASSIUM CHLORIDE IV SCH (10:13)
[2017-11-20] MEDS: LACTATED RINGERS IV SCH (10:13)
[2017-11-20] MEDS: PANTOPRAZOLE 40 MG 10ML VIAL IV SCH (12:58)
[2017-11-20] MEDS: ENOXAPARIN SOD INJ 40 MG/0.4 ML SYR SC SCH (17:17)
[2017-11-21] VITALS (9 sets, daily range): BP systolic 120–194; BP diastolic 58–87
[2017-11-21] MEDS: HYDROCODONE/APAP 7.5MG-325MG 1 EA TAB PO PRN ×3 (00:30→13:36)
[2017-11-21] MEDS: NITROGLYCERIN 2% OINT 1 GM PKT TOP SCH ×4 (00:31→16:39)
[2017-11-21] MEDS: POTASSIUM CHLORIDE IV SCH (07:40)
[2017-11-21] MEDS: DEXTROSE IV SCH (07:40)
[2017-11-21] MEDS: LACTATED RINGERS IV SCH (07:40)
[2017-11-21] MEDS: LOSARTAN POTASSIUM 100 MG TAB PO SCH (07:46)
[2017-11-21] MEDS: TRIFLUOPERAZINE 1 MG PO SCH ×2 (07:46→17:55)
[2017-11-21] MEDS: VERAPAMIL HCL 240 MG TABSR PO SCH (07:46)
[2017-11-21] MEDS: HYDROCHLOROTHIAZIDE 25 MG TAB PO SCH (07:46)
[2017-11-21] MEDS: PANTOPRAZOLE 40 MG 10ML VIAL IV SCH (13:36)
[2017-11-21] MEDS: CLONIDINE HCL 0.2 MG TAB PO PRN (16:07)
[2017-11-21] MEDS: ENOXAPARIN SOD INJ 40 MG/0.4 ML SYR SC SCH (16:39)
[2017-11-21] MEDS ORDERED: HYDROCODONE/APAP 7.5MG-325MG 1 EA TAB PO PRN (20:00)
[2017-11-22] VITALS: BP 147/67
[2017-11-22] MEDS: NITROGLYCERIN 2% OINT 1 GM PKT TOP SCH ×4 (00:33→17:38)
[2017-11-22] MEDS: DEXTROSE IV SCH (03:58)
[2017-11-22] MEDS: LACTATED RINGERS IV SCH (03:58)
[2017-11-22] MEDS: POTASSIUM CHLORIDE IV SCH (03:58)
[2017-11-22 04:00] VITALS: BP 159/68
[2017-11-22 07:45] VITALS: BP 159/68
[2017-11-22 07:48] VITALS: BP 162/65
[2017-11-22] MEDS: LOSARTAN POTASSIUM 100 MG TAB PO SCH (08:29)
[2017-11-22] MEDS: HYDROCHLOROTHIAZIDE 25 MG TAB PO SCH (08:29)
[2017-11-22] MEDS: TRIFLUOPERAZINE 1 MG PO SCH ×2 (08:29→17:38)
[2017-11-22] MEDS: VERAPAMIL HCL 240 MG TABSR PO SCH (08:29)
[2017-11-22] MEDS: CLONIDINE HCL 0.2 MG TAB PO PRN (12:03)
[2017-11-22 12:15] VITALS: BP 181/72
[2017-11-22] MEDS: PANTOPRAZOLE 40 MG 10ML VIAL IV SCH (13:25)
[2017-11-22 16:01] VITALS: BP 121/57
[2017-11-22] MEDS: ENOXAPARIN SOD INJ 40 MG/0.4 ML SYR SC SCH (17:38)
== END 2017-11-22 20:15 | disposition home or self-care (01) | DRG 737 ==
LOC: OR 05:25 → ICU 16:47 → MED/SURG 11-17 13:03 → ACU 11-21 11:30 → MED/SURG 11-21 11:32
PROVIDERS: ADMIT Surgery; ATTEND Surgery
PROC: 0DTJ0ZZ Resection of Appendix, Open Approach (ICD-10-PCS; 2017-11-16)
PROC: 0TQB0ZZ Repair Bladder, Open Approach (ICD-10-PCS; 2017-11-16)
PROC: 0UT20ZZ Resection of Bilateral Ovaries, Open Approach (ICD-10-PCS; 2017-11-16)
PROC: 0UT70ZZ Resection of Bilateral Fallopian Tubes, Open Approach (ICD-10-PCS; 2017-11-16)
PROC: 0DTU0ZZ Resection of Omentum, Open Approach (ICD-10-PCS; 2017-11-16)
PROC: 0UT90ZZ Resection of Uterus, Open Approach (ICD-10-PCS; principal; 2017-11-16 08:26)
DX: C56.1 Malignant neoplasm of right ovary (principal); K56.7 Ileus, unspecified; I10 Essential (primary) hypertension; Z86.718 Personal history of other venous thrombosis and embolism; Z79.01 Long term (current) use of anticoagulants
CPT/HCPCS: 36415; 71046; 80048; 84132; 85025; 86850; 86900; 88112; 88302; 88304; 88305; 88307; 88309; 88329; 93005; J0360; J0690; J1100; J1170; J1650; J2001; J2370; J2405; J3480; J7120